=== PATIENT | male | born 1955 | race Caucasian/White ===

== ENCOUNTER → 2017-07-25 | Outpatient (CLI) | payer BC ==
[2017-07-25 07:30] LABS: Blood Urea Nitrogen 15 mg/dL (9-20)
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
== END | disposition home or self-care (01) ==
LOC: RADMRIMAIN 06:36
PROVIDERS: ATTEND Thoracic Surgery (Cardiothoracic Vascular Surgery)
DX: M47.812 Spondylosis without myelopathy or radiculopathy, cervical region (principal)
CPT/HCPCS: 82565; 84520; 72156; 36415; A9581

== ENCOUNTER → 2017-08-21 | Outpatient (CLI) | payer BC ==
--- NOTE | 2017-08-21 08:33 | CTL ---
EXAMINATION TYPE: CT Low Dose Lung DATE OF EXAM ORDERED: 08/21/2017 HISTORY: Tobacco abuse. Lung cancer screening CT DLP: 117.[address] CTDI: 3.1 mGy Automated exposure control for dose reduction was used. SCREENING VISIT: Initial COMPARISON: None TECHNIQUE: Low dose computed tomography scan was performed through the chest at 1 mm thick sections a nd reconstructed images in the coronal plane at [address] DIAGNOSTIC QUALITY: Satisfactory FINDINGS: LUNG NODULES: None. There is a 3 mm pulmonary nodule within the superior segment of the right lower lobe adjacent to pulm onary vasculature on coronal series 9 image 38 and lung window series 4 image 155. Alternatively this could represent an ectatic vessel but is thought to be a true pulmonary nodule on the coronal images . LUNGS: COPD: Severity: Mild centrilobular Fibrosis: Severity: None Lymph nodes: No adenopathy Other findings: There is mild symmetric bilateral partially visualized probable retroareolar gynecoma stia. Minimal bibasilar subsegmental dependent atelectasis is seen on the right. RIGHT PLEURAL SPACE: Effusion: None Calcification: None Thickening: None Pneumothorax: None LEFT PLEURAL SPACE: Effusion: None Calcification: None Thickening: None Pneumothorax: None HEART: Heart Size: Normal Coronary calcification: Moderate Pericardial effusion: None OTHER FINDINGS: Upper abdomen: There are small hiatal hernia. Gallbladder surgically absent. Liver is diffusely hypoa ttenuating approaching criteria for hepatomegaly. Bony thorax: No suspicious lesions. Mild multilevel degenerative changes of the thoracic spine. Supraclavicular region: No adenopathy IMPRESSION: Solitary solid 3 mm right lower lobe pulmonary nodule. This is considered a LUNG-RADS 2-n odule with a very low likelihood of becoming a clinically active cancer due to size. However recommen dation is for continued annual screening with low dose CT in 12 months to ensure stability. There is mild background centrilobular pulmonary emphysema. FOLLOW UP CT CHEST RECOMMENDATION: Continued annual screening with low dose CT in [address] LUNG RAD: Lung-Rad 2 Benign Appearance or Behavior
== END | disposition home or self-care (01) ==
LOC: RADCTMAIN 07:23
PROVIDERS: ATTEND Internal Medicine
DX: Z12.2 Encounter for screening for malignant neoplasm of respiratory organs (principal); R91.1 Solitary pulmonary nodule; J43.9 Emphysema, unspecified; Z87.891 Personal history of nicotine dependence

== ENCOUNTER → 2018-01-10 | Outpatient (CLI) | payer BC ==
--- NOTE | 2018-01-10 09:50 | CT ---
EXAMINATION TYPE: CT sinus wo con DATE OF EXAM: 01/10/2018 COMPARISON: 03/16/2012 HISTORY: 62-year-old male sinus congestion CT DLP: 628.7 mGycm Automated exposure control for dose reduction was used. TECHNIQUE: Noncontrast axial views of the paranasal sinuses were obtained. Coronal reconstructions pe rformed. FINDINGS: PARANASAL SINUSES: Trace mucosal thickening right maxillary sinus. There is a trace air-fluid level present in the right maxillary sinus as well. Additional trace mucosal thickening within the bifrontal sinuses. The ethmo id, left maxillary and sphenoid sinuses are clear and well pneumatized. Reactive deepti- osteogenesis is not seen. There is no destruction of the osseous lehman of the paranasal sinuses. THE NASAL CAVITY: The osteomeatal complexes are patent. The nasal septum shows minimal undulation. The imaged brain and orbits are normal in appearance. The majority of the mastoid air cells and middle ear cavities are excluded from view. Reformatted images confirm above findings. IMPRESSION: Mild chronic right maxillary and bifrontal sinus disease. There is also a trace air-fluid level in th e right maxillary sinus that could represent a superimposed acute sinusitis.
== END | disposition home or self-care (01) ==
LOC: RADCTMAIN 09:10
PROVIDERS: ATTEND Otolaryngology
DX: J32.0 Chronic maxillary sinusitis (principal)
CPT/HCPCS: 70486

== ENCOUNTER → 2018-02-16 | Outpatient (CLI) | payer BC ==
--- NOTE | 2018-02-17 12:52 | XR ---
EXAMINATION TYPE: XR chest 2V DATE OF EXAM: 02/16/2018 COMPARISON: Prior chest x-ray 04/04/2013 HISTORY: Cough and congestion TECHNIQUE: Frontal and lateral views of the chest are obtained. FINDINGS: Prominent lung volumes could be indicative of underlying COPD. There is no evident airspac e disease, pneumothorax, or pleural effusion. Cardiomediastinal silhouette, pulmonary vascularity and jennifer are unchanged. IMPRESSION: No acute cardiopulmonary process.
== END ==
LOC: RADXRMAIN 16:44
PROVIDERS: ATTEND Internal Medicine
DX: R05 Cough (principal)
CPT/HCPCS: 71046

== ENCOUNTER → 2018-08-30 | Outpatient (CLI) | payer MEDICARE, BC ==
--- NOTE | 2018-08-30 08:41 | CTL ---
EXAMINATION TYPE: CT Low Dose Lung DATE OF EXAM ORDERED: 08/30/2018 HISTORY: 63-year-old male Personal history of tobacco use. Lung cancer screening CT DLP: [address] CTDI: 2.22 mGy Automated exposure control for dose reduction was used. SCREENING VISIT: One-year follow-up COMPARISON: 08/21/2017 TECHNIQUE: Low dose computed tomography scan was performed through the chest at 1 mm thick sections a nd reconstructed images in the coronal/sagittal plane. Additional coronal/sagittal MIP reconstruction s performed. CT DIAGNOSTIC QUALITY: Satisfactory FINDINGS: Heart normal size without pericardial effusion. Coronary vessel calcifications are present. Aorta normal caliber with minimal atherosclerotic arch calcifications and conventional arch vessel br anching anatomy. Scattered nonenlarged mediastinal lymph nodes are unchanged. No thoracic lymphadenopathy by CT size c riteria. Trace bilateral gynecomastia. Mild centrilobular emphysema. Multiple moderate bronchial wall thickening. Stable 3 mm right middle l obe pulmonary nodule, axial image 167. No suspicious pulmonary nodules. Visualized upper abdomen shows cholecystectomy clips. Bones: Endplate spondylosis mid to lower thoracic spine. IMPRESSION: 1. Lung RADS 2 - benign; stable solitary 3 mm right midlung pulmonary nodule. 2. COPD with mild emphysema. RECOMMENDATION: 1. Continue annual low-dose lung cancer screening CT. 2. Smoking cessation. FOLLOW UP CT CHEST RECOMMENDATION: [address] LUNG RAD: Lung-Rad 2 Benign Appearance or Behavior
== END | disposition home or self-care (01) ==
LOC: RADCTMAIN 07:41
PROVIDERS: ATTEND Internal Medicine
DX: Z12.2 Encounter for screening for malignant neoplasm of respiratory organs (principal); J43.9 Emphysema, unspecified; R91.1 Solitary pulmonary nodule; F17.210 Nicotine dependence, cigarettes, uncomplicated

== ENCOUNTER → 2018-09-14 | Day surgery (SDC) | payer MEDICARE, BC ==
[2018-09-12 16:29] VITALS: BMI 29.2
[~2018-09-14] MED LIST: LACTATED RINGERS 1,000 ML IV ONE; LACTATED RINGERS 1,000 ML IV SCH; LIDOCAINE 1% 20 ML VIAL (10MG/ML) FOR IV START INTRADERMA ONE; PROPOFOL 10 MG/ML 20 ML VIAL IV ONE
[2018-09-14 09:23] VITALS: TEMP 97.8
--- NOTE | 2018-09-14 10:25 | P.PCN ---
Date of Procedure: 09/14/18 Procedure(s) Performed: Brief history: Patient is a pleasant 63-year-old white male, scheduled for an elective upper endoscopy as well as colonoscopy as a part of evaluation of GERD and prior history of colon polyps. Last colonoscopy was 5 years Procedure performed: Esophagogastroduodenoscopy with biopsy Colonoscopy Preoperative diagnosis: GERD History of colon polyps Anest[place]: [facility] [place] Procedure: After informed consent was obtained from the patient was brought into the endoscopy unit and IV sedation was administered by anesthesia under continuous monitoring. Initially upper endoscopy was done. The Olympus GF 160 video endoscope was inserted inserted into the mouth and esophagus intubated without any difficulty and was gradually advanced into the stomach and duodenum and carefully examined. The bulb and second part of the duodenum appeared normal. The scope was then withdrawn into the stomach adequately insufflated with air and upon careful examination the antrum had mild gastritis and biopsies were done from this area. The body, cardia and fundus appeared normal. The scope was then withdrawn into the esophagus. The GE junction was located at 40 cm to the incisors. It appeared regular with no erythema erosions or ulcerations. Rest of the esophagus appeared normal. Patient tolerated the procedure well. At this time the patient continued to remain sedation. Initial digital rectal examination was normal. Olympus CF 160 video colonoscope was then inserted into the rectum and gradually advanced to the cecum without any difficulty. Careful examination was performed as the scope was gradually being withdrawn. The prep was excellent. The cecum, ascending colon, transverse colon, descending colon, sigmoid colon and rectum appeared normal. Retroflexion was performed in the rectum and no lesions were noted. Patient tolerated the procedure well. Impression: 1. Upper endoscopy revealed mild antral gastritis but no evidence of esophagitis or Salas's esophagus. 2. Colonoscopy was essentially within normal limits with no evidence of colitis or colorectal neoplasia Recommendations: Findings of this examination were discussed with the patient as well as his family. He was advised to follow with the biopsy results. He can have a repeat surveillance colonoscopy in 5 years from now because of the prior history of colon polyps.
[2018-09-14 10:29] VITALS: RESP 17
[2018-09-14 10:35] VITALS: BP 115/61; PULSE 61
== END ==
LOC: ORWHC2ENDO 09:02
PROVIDERS: ATTEND Internal Medicine Gastroenterology
DX: Z12.11 Encounter for screening for malignant neoplasm of colon (principal); K29.50 Unspecified chronic gastritis without bleeding; Z86.010 Personal history of colon polyps; F17.210 Nicotine dependence, cigarettes, uncomplicated; J44.9 Chronic obstructive pulmonary disease, unspecified; Z90.49 Acquired absence of other specified parts of digestive tract; Z87.11 Personal history of peptic ulcer disease; Z79.1 Long term (current) use of non-steroidal anti-inflammatories (NSAID); Z79.899 Other long term (current) drug therapy; Z88.6 Allergy status to analgesic agent; Z88.0 Allergy status to penicillin
CPT/HCPCS: 88305; 43239; J2704; G0105

== ENCOUNTER → 2019-02-26 | Outpatient (CLI) | payer MEDICARE, BC ==
[2019-02-27 14:04] LABS: C-ANCA <1:20 Titer (<1:20)
== END | disposition home or self-care (01) ==
LOC: LABWHC1 09:43
PROVIDERS: ATTEND Psychiatry & Neurology Pain Medicine
DX: L95.9 Vasculitis limited to the skin, unspecified (principal)
CPT/HCPCS: 36415; 85652; 86038; 86140; 86255

== ENCOUNTER → 2019-10-18 | Outpatient (CLI) | payer MEDICARE, BC ==
[2019-10-18 14:47] LABS: African American GFR (CKD) >90 (>60 ml/min/1.73 sqM); Blood Urea Nitrogen 7 mg/dL (9-20); Non-African American GFR(CKD) 89 (>60 ml/min/1.73 sqM)
--- NOTE | 2019-10-18 15:31 | CT ---
EXAMINATION TYPE: CT head without contrast CT angio head DATE OF EXAM: 10/18/2019 COMPARISON: None. HISTORY: 64-year-old male with headache x3 months. M31.6, other giant cell arteritis. TECHNIQUE: Contiguous axial scanning of the brain performed without and with IV Contrast, patient inj ected with 100 mL of Isovue 370. Coronal/sagittal MIP reconstructions performed. 3-D reconstructions generated on a dedicated independent workstation. CT DLP: 1347.6 mGycm Automated exposure control for dose reduction was used. FINDINGS: There is mild cerebral cortical volume loss. Moderate patchy white matter hypodensities in both cereb ral hemispheres. No evidence for acute intracranial hemorrhage, acute ischemic change, mass, mass effect, midline shif t, or extra-axial fluid collection. No hydrocephalus. No effacement of cerebral sulci or basal subara chnoid cisterns. Carvajal-white matter differentiation is maintained. Vertebral arteries are codominant. The vertebral and basilar arteries appear patent as does the remai nder of the posterior circulation. Mild atherosclerotic narrowing within the bilateral carotid siphons. Otherwise, anterior circulation is patent. No aneurysmal change is seen. Some frothy layering fluid left maxillary sinus. Scattered mild mucosal thickening ethmoid air cells. Small amount of fluid in the inferior right mastoid air cells. IMPRESSION: 1. MODERATE PATCHY CHANGES OF CHRONIC SMALL VESSEL ISCHEMIC DISEASE AND MILD CORTICAL ATROPHY. NO ACU TE INTRACRANIAL ABNORMALITY SEEN. 2. MILD ATHEROSCLEROTIC NARROWING THROUGHOUT THE BILATERAL CAROTID SIPHONS. NO LARGE VESSEL INTRACRAN IAL ARTERIAL OCCLUSION. NO ANEURYSMAL CHANGE SEEN. 3. BILATERAL ETHMOID AND LEFT MAXILLARY SINUS DISEASE.
== END | disposition home or self-care (01) ==
LOC: RADCTMAIN 14:10
PROVIDERS: ATTEND Psychiatry & Neurology Neurology
DX: I73.89 Other specified peripheral vascular diseases (principal); G31.89 Other specified degenerative diseases of nervous system; I65.23 Occlusion and stenosis of bilateral carotid arteries; M31.6 Other giant cell arteritis; H53.9 Unspecified visual disturbance; R90.89 Other abnormal findings on diagnostic imaging of central nervous system; I99.8 Other disorder of circulatory system; Z88.0 Allergy status to penicillin; Z88.6 Allergy status to analgesic agent
CPT/HCPCS: 82565; 84520; 70496; 36415; Q9967

== ENCOUNTER → 2019-11-29 | Outpatient (CLI) | payer MEDICARE, BC ==
--- NOTE | 2019-12-01 16:18 | CT ---
EXAMINATION TYPE: CT iac wo con DATE OF EXAM: 11/29/2019 COMPARISON: None. HISTORY: Mastoiditis, hearing loss. Left ear open wound, appears to have growth per physician. CT DLP: 142.7mGycm Automated exposure control for dose reduction was used. FINDINGS: There is a 5 x 2 mm area of soft tissue thickening of the deep portion of the left external auditory canal posteriorly (3:44, 9:17) with mild associated osseous erosion of the adjacent mastoid , and without contacting the tympanic membrane. The right external auditory canal is patent. No tymp anic membrane thickening bilaterally. Mastoid air cells show no evidence of abnormal opacification bi laterally. The middle ear ossicles are symmetric and unremarkable. There is no evidence of suspicio us surrounding soft tissue density to suggest cholesteatoma. The scutum is preserved bilaterally. T he cochlea and the semicircular canals are symmetric and unremarkable. Vestibular aqueduct and inter nal carotid canal appear unremarkable. Temporomandibular joints are maintained bilaterally. IMPRESSION: 1. Left external auditory canal demonstrates deep posterior 5 x 2 mm area of soft tissue thickening, with mild osseous erosion of the adjacent mastoid. Findings may represent malignant otitis externa. 2. No evidence of mastoiditis.
== END | disposition home or self-care (01) ==
LOC: RADCTMAIN 09:03
PROVIDERS: ATTEND Otolaryngology
DX: H61.892 Other specified disorders of left external ear (principal); J32.0 Chronic maxillary sinusitis; H70.90 Unspecified mastoiditis, unspecified ear
CPT/HCPCS: 70480

== ENCOUNTER 2019-12-27 08:35 | Day surgery (SDC) | payer MEDICARE, BC ==
[2019-12-24 13:10] VITALS: BMI 28.8
--- NOTE | 2019-12-27 00:57 | HP ---
HISTORY AND PHYSICAL CHIEF COMPLAINT: Lesion of the left external auditory canal. HISTORY OF PRESENT ILLNESS: This patient is a pleasant 64-year-old male who was recently seen in my office because of drainage from his left ear. At the time that we originally saw this patient, clinical examination of the left ear revealed that he had quite a bit of purulent drainage in an area of ulceration on the floor of the ear near the junction of the cartilage in the bony portion of the canal. Initially the left ear was somewhat painful. The patient was placed on antibiotic ear drops, Floxin, for approximately 2 weeks. Upon returning, the drainage had cleared, but there still appeared to be an ulceration and possibly some granulation tissue located in the midportion of the ear. A CT scan of the internal auditory canals revealed a small area of soft tissue thickening in the left external auditory canal posteriorly. There also appeared to be mild erosion of the adjacent mastoid. There was a suggestion of possible malignant otitis external. However, there was no evidence of mastoiditis and after 2 weeks of treatment with antibiotic ear drops, the patient stated that the ear was no longer painful and there was no drainage. It was recommended that this area be biopsied under general anesthesia. PAST MEDICAL HISTORY: Past medical history reveals that the patient has allergies to PENICILLIN, ASPIRIN, and IBUPROFEN. His current medications include Mobic, Prevacid, Valium, and prednisone. In addition to this, he is also on Plavix. REVIEW OF SYSTEMS: Cardiovascular is negative. Gastrointestinal system is negative. Metabolic endocrine system is negative. Musculoskeletal is positive for osteoarthritis. The patient smokes approximately 1 pack of cigarettes per day. PREVIOUS SURGERIES: Previous surgeries include colonoscopy, arthroscopy of the knee, biopsy of the left temporal artery. PHYSICAL EXAMINATION: This patient is a very pleasant 64-year-old male who is alert and cooperative and well oriented to time and place. HEENT EXAMINATION: Patient is normocephalic. Examination the right ear is unremarkable. Examination of left ear reveals the patient has an area in the midportion of the canal where there appears to be a small ulceration with some granulation tissue on the floor of the left external auditory canal. This appears to be near the junction of the cartilage and bony portion of the canal. The area is nontender to deep palpation. It is also non-friable. The left tympanic membrane and middle ear space is free of any fluid or infection. Pupils are equal, round, react to light and accommodation. Extraocular movements are within normal limits. Intranasal examination reveals moderate septal deviation with compensatory hypertrophy of the inferior turbinates and a moderate amount of mucus on the mucous membranes and draining down the posterior pharynx. Cranial nerves 2 through 12 and the remainder of the head and neck exam including examination of the oropharynx are all within normal limits. CHEST/CARDIOVASCULAR: Both lung anguiano are clear to percussion and auscultation. The patient is in regular sinus rhythm. S1 and S2 are present without evidence of any murmurs, S3s or S4s. Peripheral pulses are bilaterally symmetrical and within normal limits. ABDOMEN: There is no evidence of masses, megaly, or tenderness. The abdomen is soft. Skin is unremarkable. Musculoskeletal and neurological are within normal limits. RECTAL EXAMINATION: The rectal exam is deferred at this time because the patient has this done on a regular basis at his family physician's office. The remainder of physical exam is unremarkable. IMPRESSION: Lesion of the left external auditory canal. PLAN: The patient is scheduled to undergo biopsy of lesion of the left external auditory canal under general anesthesia in the a.m. ATTENTION RNS IN THE PRE-SURGICAL AREA: I have not ordered any pre-surgical prophylactic antibiotics for this patient. If the pharmacy department sends any pre- surgical prophylactic antibiotics to the pre-surgical area for this patient, that order should be cancelled and the medication should be returned to the pharmacy department. Please make sure that the patient's account is credited appropriately. I have ordered for the patient to receive 1000 mg of Ofirmev IV once an intravenous line has been established. I have discussed the risks, benefits and alternative therapies for the above-mentioned procedure and for both sedation/analgesia as well as necessary blood product administration, if indicated, as they pertain to this patient. The patient has indicated his or her understanding and acceptance of the risks and procedures discussed. MMODL / IJN: [id number] /
[~2019-12-27 08:35] MED LIST changes: +HYDROmorphone 0.5 MG/0.5 ML SYRINGE IVP PRN; -LACTATED RINGERS 1,000 ML IV ONE; +LIDOCAINE 1% (10MG/ML) FOR IV START INTRADERMA PRN; -LIDOCAINE 1% 20 ML VIAL (10MG/ML) FOR IV START INTRADERMA ONE; +ONDANSETRON 4 MG/2 ML VIAL IVP ONE; -PROPOFOL 10 MG/ML 20 ML VIAL IV ONE; +Pre Op ABX Message 1 EACH MISC MISCELLANE ONE
[2019-12-27] MEDS ORDERED: ACETAMINOPHEN IV (For NPO) 1,000 MG in EMPTY BAG 1 BAG IVPB ONE (09:45)
[2019-12-27] MEDS ORDERED: fentaNYL (PF) 50 MCG/ML 2 ML AMP ONE (10:01)
[2019-12-27] MEDS ORDERED: LIDOCAINE 1% INJ 10MG/ML (20 ML MDV) ONE (10:01)
[2019-12-27] MEDS ORDERED: MIDAZOLAM 2 MG/2 ML VIAL ONE (10:01)
[2019-12-27] MEDS ORDERED: PROPOFOL 10 MG/ML 20 ML VIAL IV ONE (10:01)
[2019-12-27] MEDS ORDERED: OFLOXACIN 0.3% OPHTH DROPS 5 ML BOTTLE LEFT EAR ONE (10:38)
[2019-12-27 10:59] VITALS: TEMP 97.3
[2019-12-27 11:33] VITALS: RESP 16
[2019-12-27 12:28] VITALS: BP 135/88; PULSE 56
--- NOTE | 2019-12-30 09:44 | OP ---
OPERATIVE REPORT DATE OF SURGERY: 12/27/2019. PREOPERATIVE DIAGNOSIS: Lesion of the left external auditory canal, final pathology pending. POSTOPERATIVE DIAGNOSIS: Lesion of the left external auditory canal, final pathology pending. ANESTHESIA: General. OPERATIVE PROCEDURE: Biopsy of lesion of the left external auditory canal. OPERATING SURGEON: Dr. Rodriguez. COMPLICATIONS: None. ESTIMATED BLOOD LOSS: Less than 2 mL. OPERATIVE PROCEDURE: The patient was placed on the operating table in supine position after uneventful induction and endotracheal intubation, satisfactory general anesthesia was obtained. The patient's left ear was prepped and draped in the usual and customary fashion. Following this, using the Zeiss operating microscope and a #3 aural speculum, the left external auditory canal was cleansed of all wax and debris. Inspection under magnification revealed that there appeared to be an area at the junction of the caudal agonist and bony canal where the skin or tissue had either heaped upward or appeared to be forming a pseudomembrane. The patient's tympanic membrane was totally intact and normal. Therefore, using a pair of up-biting otology O2 all otology ear forceps, several biopsies were initially obtained and these were sent for cultures. Several additional biopsies of this tissue also obtained and these were placed in formalin and sent to Pathology for permanent sectioning. Pressure was applied to the area which appeared to stop the bleeding and also the ear was dusted with Aresta hemostatic powder. No packing was placed in the ear. At this point, the procedure was terminated. There were no intraoperative complications. Estimated blood loss less than 2 mL. The patient was returned to the recovery room in satisfactory condition. Final pathology is pending. MMODL / IJN: [id number] /
== END 2019-12-27 12:35 | disposition home or self-care (01) ==
LOC: OR 08:35
PROVIDERS: ATTEND Otolaryngology
DX: L57.0 Actinic keratosis (principal); R23.8 Other skin changes; M19.90 Unspecified osteoarthritis, unspecified site; F17.210 Nicotine dependence, cigarettes, uncomplicated; E78.5 Hyperlipidemia, unspecified; J45.909 Unspecified asthma, uncomplicated; K21.9 Gastro-esophageal reflux disease without esophagitis; Z88.0 Allergy status to penicillin; Z88.1 Allergy status to other antibiotic agents; Z88.6 Allergy status to analgesic agent; Z88.8 Allergy status to other drugs, medicaments and biological substances; Z79.1 Long term (current) use of non-steroidal anti-inflammatories (NSAID); Z79.899 Other long term (current) drug therapy; Z79.52 Long term (current) use of systemic steroids; Z79.02 Long term (current) use of antithrombotics/antiplatelets; Z98.890 Other specified postprocedural states; Z97.2 Presence of dental prosthetic device (complete) (partial); Z87.11 Personal history of peptic ulcer disease; Z86.79 Personal history of other diseases of the circulatory system; Z86.69 Personal history of other diseases of the nervous system and sense organs; W89.9XXA Exposure to unspecified man-made visible and ultraviolet light, initial encounter
CPT/HCPCS: 88304; 82365; 69100; J2250; J2405; J2001; J3010; J0131; J2704; 87070; 87075; 87205

== ENCOUNTER → 2020-01-23 | Outpatient (CLI) | payer MEDICARE, BC ==
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
== END | disposition home or self-care (01) ==
LOC: RADCTMAIN 07:57
PROVIDERS: ATTEND Family Medicine
DX: Z12.2 Encounter for screening for malignant neoplasm of respiratory organs (principal); F17.210 Nicotine dependence, cigarettes, uncomplicated

== ENCOUNTER 2020-02-19 09:51 | Day surgery (SDC) | payer MEDICARE, BC ==
[2020-02-17 15:28] VITALS: BMI 28.6
[~2020-02-19 09:51] MED LIST changes: -HYDROmorphone 0.5 MG/0.5 ML SYRINGE IVP PRN; -LIDOCAINE 1% (10MG/ML) FOR IV START INTRADERMA PRN; -ONDANSETRON 4 MG/2 ML VIAL IVP ONE; -Pre Op ABX Message 1 EACH MISC MISCELLANE ONE
[2020-02-19 10:08] VITALS: TEMP 97.7
[2020-02-19] MEDS ORDERED: LACTATED RINGERS 1,000 ML IV ONE (10:08)
[2020-02-19] MEDS ORDERED: LIDOCAINE 1% (10MG/ML) FOR IV START INTRADERMA ONE (10:18)
[2020-02-19] MEDS ORDERED: LIDOCAINE 1% INJ 10MG/ML (20 ML MDV) ONE (11:20)
[2020-02-19] MEDS ORDERED: PROPOFOL 10 MG/ML 20 ML VIAL IV ONE (11:20)
--- NOTE | 2020-02-19 11:40 | P.PCN ---
Date of Procedure: 02/19/20 Procedure(s) Performed: Brief history: Patient is a pleasant 64-year-old white male scheduled for an elective upper endoscopy as well as colonoscopy as a part of evaluation of GERD and screening for colorectal neoplasia Procedure performed: Esophagogastroduodenoscopy Colonoscopy with snare polypectomy Preoperative diagnosis: GERD Screening for colon cancer Anesthesia: MAC Procedure: After informed consent was obtained from the patient was brought into the endoscopy unit and IV sedation was administered by anesthesia under continuous monitoring. Initially upper endoscopy was done. The Olympus GF 160 video endoscope was inserted inserted into the mouth and esophagus intubated without any difficulty and was gradually advanced into the stomach and duodenum and carefully examined. The bulb and second part of the duodenum appeared normal. The scope was then withdrawn into the stomach adequately insufflated with air and upon careful examination the antrum and body, cardia and fundus appeared normal. The scope was then withdrawn into the esophagus. The GE junction was located at 40 cm to the incisors. It appeared regular with no erythema erosions or ulcerations. Rest of the esophagus appeared normal. Patient tolerated the procedure well. At this time the patient continued to remain sedation. Initial digital rectal examination was normal. Olympus CF 160 video colonoscope was then inserted into the rectum and gradually advanced to the cecum without any difficulty. Careful examination was performed as the scope was gradually being withdrawn. The prep was excellent. The cecum, where normal. In the ascending colon there was a 5 mm polyp removed by snare polypectomy. In the transverse colon there was another 5 mm sessile polyp removed by snare polypectomy. Rest of the ascending colon, transverse colon, descending colon, sigmoid colon and rectum appeared normal. Retroflexion was performed in the rectum and no lesions were noted. Patient tolerated the procedure well. Impression: 1. Upper Endoscopy revealed mild antral gastritis 2. Colonoscopy revealed 5 mm ascending colon polyp and 5 mm transverse colon polyp status post polypectomy Recommendations: Findings of this examination were discussed with the patient as well as his family. He was advised to the biopsy results. If the biopsy shows an adenoma he can have a repeat colonoscopy in 5 years.
[2020-02-19 12:01] VITALS: BP 136/76; PULSE 60; RESP 16
== END 2020-02-19 12:20 | disposition home or self-care (01) ==
LOC: ORWHC2ENDO 09:51
PROVIDERS: ATTEND Internal Medicine Gastroenterology
DX: Z12.11 Encounter for screening for malignant neoplasm of colon (principal); D12.2 Benign neoplasm of ascending colon; D12.3 Benign neoplasm of transverse colon; K21.9 Gastro-esophageal reflux disease without esophagitis; E78.5 Hyperlipidemia, unspecified; J45.909 Unspecified asthma, uncomplicated; Z86.010 Personal history of colon polyps; F32.9 Major depressive disorder, single episode, unspecified; F17.210 Nicotine dependence, cigarettes, uncomplicated; M19.90 Unspecified osteoarthritis, unspecified site; K25.9 Gastric ulcer, unspecified as acute or chronic, without hemorrhage or perforation; Z90.49 Acquired absence of other specified parts of digestive tract; Z98.890 Other specified postprocedural states; Z97.2 Presence of dental prosthetic device (complete) (partial); Z79.02 Long term (current) use of antithrombotics/antiplatelets; Z79.891 Long term (current) use of opiate analgesic; Z79.899 Other long term (current) drug therapy; Z88.6 Allergy status to analgesic agent; Z88.1 Allergy status to other antibiotic agents; Z88.0 Allergy status to penicillin; Z88.8 Allergy status to other drugs, medicaments and biological substances
CPT/HCPCS: 88305; 45385; 43235; J2001; J2704

== ENCOUNTER → 2020-10-06 | Outpatient (CLI) | payer MEDICARE, BC ==
--- NOTE | 2020-10-06 16:06 | XR ---
EXAMINATION TYPE: XR chest 2V DATE OF EXAM: 10/06/2020 COMPARISON: January 16, 2018 HISTORY: Shortness of breath TECHNIQUE: Frontal and lateral views of the chest are obtained. FINDINGS: Scattered senescent parenchymal changes noted. Hyperinflation compatible with COPD. No evidence for infiltrate. No evidence for atelectasis. Heart size is stable. Mediastinal structures are stable and grossly unremarkable. No evidence for hilar prominence. Degenerative changes dorsal spine. IMPRESSION: 1. No evidence for acute pulmonary disease.
== END | disposition home or self-care (01) ==
LOC: RADXRMAIN 15:35
PROVIDERS: ATTEND Family Medicine
DX: R06.02 Shortness of breath (principal)
CPT/HCPCS: 71046

== ENCOUNTER → 2020-11-02 | Outpatient (CLI) | payer MEDICARE, BC ==
--- NOTE | 2020-11-02 11:43 | ECHOF ---
Referral Reason:R94.31 abnormal EKG MEASUREMENTS -------- HEIGHT: 170.2 cm WEIGHT: 94.3 kg BP: IVSd: 1.0 cm (0.6 - 1.1) LVIDd: 3.2 cm (3.9 - 5.3) LVPWd: 1.1 cm (0.6 - 1.1) IVSs: 1.7 cm LVIDs: 2.3 cm LVPWs: 1.4 cm LAESV Index (A-L): 24.33 ml/m Ao Diam: 3.2 cm (2.0 - 3.7) AV Cusp: 2.2 cm (1.5 - 2.6) LA Diam: 2.8 cm (2.7 - 3.8) MV EXCURSION: 13.883 mm (> 18.000) MV EF SLOPE: 128 mm/s (70 - 150) EPSS: 0.5 cm MV E Lester: 0.88 m/s MV DecT: 189 ms MV A Lester: 0.67 m/s MV E/A Ratio: 1.32 RAP: 5.00 mmHg RVSP: 17.01 mmHg FINDINGS -------- This was a technically good study. The left ventricular size is normal. Left ventricular wall thickness is normal. Overall left vent ricular systolic function is normal with, an EF between 55 - 60 %. The diastolic filling pattern is normal for the age of the patient 11.29. The right ventricle is normal in size. The left atrial size is normal. Normal LA size by volume 22+/-6 ml/m2. The right atrial size is normal. The aortic valve is trileaflet and appears structurally normal. The mitral valve is normal. There is trace mitral regurgitation. The tricuspid valve appears structurally normal. Trace tricuspid regurgitation present. Right jacob tricular systolic pressure is normal at < 35 mmHg. There is no pulmonic regurgitation present. The aortic root size is normal. Normal inferior vena cava with normal inspiratory collapse consistent with estimated right atrial pre ssure of 5 mmHg. There is no pericardial effusion. CONCLUSIONS -------- 1. The left ventricular size is normal. 2. Left ventricular wall thickness is normal. 3. Overall left ventricular systolic function is normal with, an EF between 55 - 60 %. 4. The diastolic filling pattern is normal for the age of the patient 11.29 5. There is trace mitral regurgitation. 6. Trace tricuspid regurgitation present. 7. There is no pericardial effusion. PHARMACY GRAD INTERN: Neida Houston RDCS
--- NOTE | 2020-11-02 13:56 | ECHOS ---
STRESS ECHOCARDIOGRAM INDICATION: Abnormal EKG. MEDICATIONS: BASELINE HEART RATE: 65 BASELINE BLOOD PRESSURE: 127/74 MAXIMUM HEART RATE: 137 MAXIMUM BLOOD PRESSURE: 203/80 85% MPHR: 130 100% MPHR: 153 METS: 5.0 MAXIMUM STAGE REACHED: 2 TOTAL EXERCISE TIME: 4 min 10 sec. RESULTS: Baseline EKG shows sinus rhythm, normal axis, some poor R-wave progression. Patient exercised on Eduardo protocol for a total of 4 minutes, achieving 5 METS, 89% of predicted maximal heart rate without chest pain or diagnostic ST-segment depression. Baseline echo shows normal left ventricular size, wall motion and systolic function. Postexercise there is normal hyperdynamic response of all segments of myocardium noted. CONCLUSIONS: 1. Limited exercise tolerance. 2. Negative stress test by EKG criteria. 3. Negative stress echo. MMODL / IJN: [id number] /
== END | disposition home or self-care (01) ==
LOC: RADNMMAIN 10:01
PROVIDERS: ATTEND Family Medicine
DX: I08.1 Rheumatic disorders of both mitral and tricuspid valves (principal); R94.31 Abnormal electrocardiogram [ECG] [EKG]
CPT/HCPCS: 93306; 93351

== ENCOUNTER → 2020-11-26 | Outpatient (CLI) | payer MEDICARE, BC ==
--- NOTE | 2020-11-26 20:34 | CONS ---
CONSULTATION DATE OF SERVICE: 11/26/2020 65 -year-old gentleman has been evaluated in the [facility] for feeling tiredness and sleepiness all the time. Possible obstructive sleep apnea. HISTORY OF PRESENT ILLNESS/SLEEP WAKE EVALUATION: SLEEP SCHEDULE: The patient's usual sleep schedule from 10 p.m. to 7 a.m. on weekdays and 10:30 p.m. to 7:30 a.m., 8 a.m. on weekends. FALLING ASLEEP: No problems with falling asleep although he has t.v. Set in bedroom. DURING SLEEP: He usually sleeps on the side position. According to his , he occasionally snores. Has episodes of heartburn and panic attacks. DURING THE DAY/SLEEP WAKE EVALUATION: During the day, he has difficulties to pay attention. He has problem with memory, concentration, irritability, depression, anxiety and sexual dysfunction. He drinks two coffees and three to four Pepsi during the day. With this regimen, his Byron sleep scale is 3 but sometimes still may take some occasional naps. No history of hypnogogical hallucinations, sleep paralysis or cataplexy. PAST MEDICAL HISTORY: Positive for headaches, hyperlipidemia, anxiety, allergies, hayfever. Presently on evaluation of his lungs, the patient has positive history of smoking for more than 75 pack years. PAST SURGICAL HISTORY: ACL and meniscus surgery in 2009. MEDICATIONS: 10 mg, three times a day, 5 mg once a day, Ramiprazole 30 mg twice a day, clopidogrel 75 mg once a day, presently on Prednisone with decreasing dose, Zyrtec twice a day, Vitamin D and Vitamin B complex supplement. REVIEW OF SYMPTOMS: Always tiredness during the day, concentration, irritability, depression, anxiety, sexual dysfunction. SOCIAL HISTORY: Positive history of smoking for 52 years, 1 1/2 packs a day. Alcohol none at the present time. PHYSICAL EXAMINATION: gentleman without distress. Blood pressure 142/71. HR 74, RR 15, height 5 feet 7 three quarter inches, weight 116 pounds, body mass index 31.6, neck 15 1/2 inches in circumference. Temperature 98.5 degrees. Oxygen saturation on room air 98%. Oropharynx Mallampati 2-3. Small oropharyngeal air space. NECK: Supple, no JVD. Thyroid is not palpable. LUNGS: Clear to percussion and to auscultation. Good air exchange. No wheezing or rhonchi. HEART: S1, S2 regular. No murmurs, gallops, or rubs. ABDOMEN: Soft and nontender. Bowel sounds are present. No organomegaly appreciated. EXTREMITIES: No clubbing or cyanosis. IUSS ANALYST: Awake, alert, and oriented X3. Cranial nerves 2 to 7 intact. There is no fasciculation or atrophy. noted. No focal deficits observed. IMPRESSION: 1. Episodes of snoring, small oropharyngeal air space, tiredness and sleepiness during the day, possible obstructive sleep apnea/hypopnea syndrome. 2. Mild obesity, BMI 30.0. 3. Anxiety. 4. Episodes of headaches. 5. Hyperlipidemia. 6. Allergy, history of hayfever. 7. Status post ACL and meniscus surgery in 2009. 8. History of smoking more than 75 pack years, presently evaluation of the lung planning for CT scan of the lungs. PLAN: 1. Polysomnography for evaluation of patient's breathing during sleep. 2. CPAP/BiPAP titration if sleep study confirms obstructive sleep apnea-hypopnea syndrome. 3. Preferable position during sleep on the side. 4. No driving if patient feels any sleepiness. 5. I will see patient for follow up visit to explain results of testing and following plan. 6. Smoking cessation. Thank you very much for referring this patient for consultation. Sincerely, Brad Bailey MD, PhD, FAASM Diplomat of [employer] Sleep Medicine [employer] of [employer] [facility] [place] [facility] [place] MMODL / IJN: [id number] /
== END ==
LOC: SLEEP 14:04
PROVIDERS: ATTEND Internal Medicine
DX: G47.10 Hypersomnia, unspecified (principal); F41.9 Anxiety disorder, unspecified; T78.40XA Allergy, unspecified, initial encounter; E66.9 Obesity, unspecified; E78.5 Hyperlipidemia, unspecified; Z87.891 Personal history of nicotine dependence; Z98.890 Other specified postprocedural states; Z91.048 Other nonmedicinal substance allergy status; Z68.30 Body mass index [BMI] 30.0-30.9, adult; Z88.6 Allergy status to analgesic agent; Z88.0 Allergy status to penicillin; Z88.1 Allergy status to other antibiotic agents; Z88.8 Allergy status to other drugs, medicaments and biological substances
CPT/HCPCS: 99211

== ENCOUNTER 2020-12-09 12:09 | Day surgery (SDC) | payer MEDICARE, BC ==
[2020-12-08 09:46] VITALS: BMI 28.8
[~2020-12-09 12:09] MED LIST changes: +ALBUTEROL NEB (CONC) 2.5 MG/0.5 ML INHALATION ONE; +LIDOCAINE 2% (PF) 20 MG/ML 5 ML VIAL INHALATION ONE; +LIDOCAINE VISCOUS 300 MG/15 ML CUP MUCOUS MEM ONE
[2020-12-09 12:42] VITALS: TEMP 97.6
[2020-12-09] MEDS ORDERED: LIDOCAINE 1% INJ 10MG/ML (20 ML MDV) ONE (13:15)
[2020-12-09] MEDS ORDERED: MIDAZOLAM 2 MG/2 ML VIAL ONE (13:15)
[2020-12-09] MEDS ORDERED: GLYCOPYRROLATE 0.2 MG/ML 2 ML VIAL ONE (13:15)
[2020-12-09] MEDS ORDERED: PROPOFOL 10 MG/ML 20 ML VIAL IV ONE (13:15)
[2020-12-09 13:56] VITALS: RESP 16
--- NOTE | 2020-12-09 14:03 | P.PCN ---
Date of Procedure: 12/09/20 Preoperative Diagnosis: Postoperative Diagnosis: Chronic cough Procedure(s) Performed: 1 normal airway inspection 2 Loose respiratory secretions, bronchioloalveolar lavage of the left lower lobe anterior segment was completed. Anesthesia: MAC Surgeon: Michael Breaux Estimated Blood Loss (ml): 0 Pathology: other Disposition: same day Operative Findings: Indication. Is a 65-year-old male patient with chronic cough. The patient is a chronic smoker. This procedure was done under conscious sedation with anesthetic agents being administered by anesthesia the bedside. After achieving adequate sedation, the flexible bronchoscope was inserted through left nostril was advanced into the upper airway. Examination of the upper airway structures including headaches, larynx, epiglottis, vallecula, arytenoids and the vocal cords. All of these upper airway structures were within normal limits. No significant abnormalities was noted. Vocal cord function mobility was also within normal. A total of 2 mL of 1% lidocaine was instilled on the vocal cords and following that the flexible bronchoscope was advanced into the upper trachea. Examination of the tracheal bronchial tree was done. The visualized airways into the trachea, bilateral mainstem bronchi, right upper lobe bronchus, rhonchus intermedius, right middle lobe bronchus, right lower lobe bronchus, left upper lobe bronchus and left lower lobe bronchus. I also inspected the 10 different segments on the right lung and a different segments in the left lung. I encountered some looseness for secretions mainly in the left lung and this was occupying essentially the left lower lobe bronchus along with various segments and the li ngular segment. Therapeutic and was suctioning with him. Rest or secretions were suctioned out without any major difficulties. Airway inspection revealed no endobronchial tumors, no mucosal abnormalities, no foreign bodies, no polyps, no lesions, no pus. Following that, the bronchoscope was moved to the anterior segment of the left lower lobe. The bronchioloalveolar lavage of the anteromedial segment was done. A total of 80 mL of fluid was infused in a total of 20 mL was suctioned back without any major difficulties. The aspirate was nonbloody. Patient tolerated the procedure well. No oxygen desaturations. No significant coughing or respiratory distress during the procedure. Bronchoscope was removed and the patient was transferred recovery in stable condition. Postop diagnosis 1 chronic bronchitis with secondary cough and mucus production 2 smoke-induced cough 3 Normal airway inspection 4 bronchial alveolar lavage of the left lower lobe was done. Pending cultures.
[2020-12-09 14:10] VITALS: BP 122/70; PULSE 60
[2020-12-09 19:31] LABS: Appearance,BF Hazy; Color,BF Colorless; Nucleated Cells, Body Fluid 246 /uL; RBC, Body Fluid 99 /uL
[2020-12-09 19:34] LABS: Mononuclear WBC,Body Fluid 37 %; Polynuclear WBC,Body Fluid 63 %; Total Cells Counted,Body Fluid 100
== END 2020-12-09 14:49 | disposition home or self-care (01) ==
LOC: ORWHC2ENDO 12:09
PROVIDERS: ATTEND Internal Medicine Critical Care Medicine
DX: J42 Unspecified chronic bronchitis (principal); E78.5 Hyperlipidemia, unspecified; F32.9 Major depressive disorder, single episode, unspecified; K58.9 Irritable bowel syndrome, unspecified; F41.1 Generalized anxiety disorder; K21.9 Gastro-esophageal reflux disease without esophagitis; F17.210 Nicotine dependence, cigarettes, uncomplicated; Z79.02 Long term (current) use of antithrombotics/antiplatelets; Z79.899 Other long term (current) drug therapy; Z80.1 Family history of malignant neoplasm of trachea, bronchus and lung; Z90.49 Acquired absence of other specified parts of digestive tract
CPT/HCPCS: 87798 ×3; 87496; 87498; 87529; 88108; 88305; 89050; 87252; 87502; 87634; 87070; 87205; 87116; 87102; 87206; 31624; J2250; J2001; J2704

== ENCOUNTER → 2021-02-23 | Outpatient (CLI) | payer MEDICARE, BC ==
--- NOTE | 2021-02-23 09:12 | CTL ---
EXAMINATION TYPE: CT Low Dose Lung DATE OF EXAM ORDERED: 02/23/2021 HISTORY: 65-year-old male Z87.891. tobacco use, nicotine dependance. Lung cancer screening CT DLP: 79.[address] CTDI: 2.2 mGy Automated exposure control for dose reduction was used. SCREENING VISIT: Annual follow-up COMPARISON: 01/23/2020 TECHNIQUE: Low dose computed tomography scan was performed through the chest with coronal and sagitta l reconstructions. CT DIAGNOSTIC QUALITY: Satisfactory FINDINGS: Heart normal size without pericardial effusion. LAD and circumflex coronary artery calcifications are present. Mild atherosclerotic arch calcifications with conventional arch vessel branching anatomy. Scattered mediastinal lymph nodes are redemonstrated measuring up to 6 mm. No thoracic lymphadenopath y by CT size criteria. Mild bilateral gynecomastia is redemonstrated. Mild to moderate central bronchial wall thickening. Mild emphysematous change. Some scattered mild floyd bpleural interstitial thickening and reticular changes. Mild dependent atelectasis. Stable calcified granuloma lateral right lower lobe, axial image 174. Hazy densities in the lower renita gs probably reflect generalized areas of atelectasis. No consolidation or pleural effusion. Visualized upper abdomen shows no gross anomaly. Bones: Prominent anterior endplate spondylosis T11-T12. Mild multilevel degenerative disc disease. IMPRESSION: 1. LungRADS 2, benign. No new or suspicious pulmonary nodules. 2. COPD with mild emphysema. Scattered chronic interstitial changes. Bronchial wall thickening could reflect a prominent component of chronic bronchitis or superimposed acute bronchitis. Recommend smoki ng cessation. 3. LAD and circumflex coronary artery calcifications. CT LUNG RAD AND CT CHEST RECOMMENDATION: Lung-Rad 2 Benign Appearance or Behavior: Continue annual sc reening with LDCT in 12 months.
== END | disposition home or self-care (01) ==
LOC: RADCTMAIN 07:33
PROVIDERS: ATTEND Family Medicine
DX: Z12.2 Encounter for screening for malignant neoplasm of respiratory organs (principal); Z87.891 Personal history of nicotine dependence; J43.9 Emphysema, unspecified; I25.10 Atherosclerotic heart disease of native coronary artery without angina pectoris
CPT/HCPCS: 71271

== ENCOUNTER 2021-05-14 08:10 | Day surgery (SDC) | payer MEDICARE, BC ==
[2021-05-11 11:47] VITALS: BMI 30.5
[~2021-05-14 08:10] MED LIST changes: -ALBUTEROL NEB (CONC) 2.5 MG/0.5 ML INHALATION ONE; +ALPRAZolam 0.25 MG TAB PO PRN; +ALPRAZolam 0.5 MG TAB PO PRN; +ASPIRIN 325 MG TAB PO STA; +ATORVASTATIN 80 MG TAB PO STA; +HEPARIN SODIUM,PORCINE 10,000 UNIT in SODIUM CHLORIDE 0.9% 1,000 ML IRRIGATION PRN; +HEPARIN SODIUM,PORCINE 2,500 UNIT in SODIUM CHLORIDE 0.9% 250 ML IRRIGATION PRN; -LACTATED RINGERS 1,000 ML IV SCH; -LIDOCAINE 2% (PF) 20 MG/ML 5 ML VIAL INHALATION ONE; -LIDOCAINE VISCOUS 300 MG/15 ML CUP MUCOUS MEM ONE; +NITROGLYCERIN SL TABS 0.4 MG TAB SUBLINGUAL PRN; +SODIUM CHLORIDE 0.9% 1,000 ML in EMPTY BAG 1 BAG IV SCH
[2021-05-14 08:38] VITALS: TEMP 98.1
[2021-05-14] MEDS ORDERED: LIDOCAINE 1% INJ 10MG/ML (20 ML MDV) ONE (08:50)
[2021-05-14] MEDS ORDERED: VERAPAMIL 2.5 MG/ML 2 ML AMP ONE (08:51)
[2021-05-14] MEDS ORDERED: HEPARIN SODIUM 1,000 UN/ML (10ML VL) ONE (08:58)
[2021-05-14] MEDS ORDERED: MIDAZOLAM 2 MG/2 ML VIAL IV ONE (09:15)
[2021-05-14] MEDS ORDERED: LIDOCAINE 1% INJ 10MG/ML (20 ML MDV) SQ ONE (09:17)
[2021-05-14] MEDS ORDERED: VERAPAMIL SYRINGE (5 MG/10 ML) INTRAARTER ONE (09:19)
[2021-05-14] MEDS ORDERED: HEPARIN SODIUM 1,000 UN/ML (10ML VL) IV ONE (09:19)
[2021-05-14] MEDS ORDERED: IOPAMIDOL-370 125ML BTL INJ ONE (09:26)
[2021-05-14] MEDS ORDERED: RX INFO: IV CONTRAST WAS GIVEN 1 EACH MISC MISCELLANE PRN (09:32)
--- NOTE | 2021-05-14 09:37 | P.PCN ---
Date of Procedure: 05/14/21 Operative Findings: CARDIAC CATHETERIZATION PERFORMING PHYSICIAN: Ronen Callahan MD, RPVI PROCEDURE PERFORMED: 1. Selective right and left coronary angiogram 2. Left heart catheterization INDICATION: This is a very pleasant 65-year-old gentleman with hypertension and dyslipidemia who was experiencing symptoms of shortness of underwent myocardial perfusion imaging stenosis and ischemia he is also known to have coronary artery disease based on computed tomography scan of the chest. In light of that heart catheterization was advised COMPLICATION: None APPROACH: Right radial artery LEVEL OF SEDATION: Moderate with a sedation length of 14 minutes PROCEDURE DESCRIPTION: After obtaining an informed consent, the patient was brought to cardiac laborer driver. Local anesthesia was performed using lidocaine subcutaneously. The right radial artery was cannulated using Seldinger technique, the guidewire passed easily, following that we advanced a 5-Burkinan sheath dilator assembly, the wire and dilator were removed and sheath was flushed. Following that, 2 mg of verapamil along with 5000 unit heparin were given. Selective right and left coronary angiogram using a 6-Burkinan JR4 and JL 3.5 catheters. Following that we did left heart catheterization using 6-Burkinan pigtail catheter. The procedure was completed there was no complication. SELECTIVE CORONARY ANGIOGRAM: The right coronary artery: Is a large caliber vessel and nondominant vessel. The RCA is calcified was mild disease only distally bifurcates into PDA and PLV branches and both appeared to be angiographically Left main: Is angiographically normal. Bifurcates into all CX and LAD. The left circumflex: Is a large caliber vessel and nondominant. The LCx has mild disease only. Gives rises into a high takeoff point branch which were present illness intermedius and that appeared to be angiographically normal. The left anterior descending artery: It is a large caliber vessel. The LAD is calcified was mild disease only. Gives rises into a large diagonal branch which bifurcated into 2 subbranches and both appeared to be angiographically normal HEMODYNAMICS: The LVEDP was 10 mmHg without significant gradient across aortic valve CONCLUSION: 1. Calcified right and left coronary system 2. Mild nonobstructive coronary artery disease 3. Normal left-sided filling pressure POSTPROCEDURE MANAGEMENT: Medical treatment and follow-up with the patient
[2021-05-14] MEDS ORDERED: SODIUM CHLORIDE 0.9% 1,000 ML IV SCH (09:45)
[2021-05-14 19:06] VITALS: RESP 16
[2021-05-14 19:07] VITALS: PULSE 48
[2021-05-14 19:09] VITALS: BP 130/66
== END 2021-05-14 14:05 | disposition home or self-care (01) ==
LOC: CATHCVL 08:10
PROVIDERS: ATTEND Internal Medicine Interventional Cardiology
DX: R06.02 Shortness of breath (principal); I25.110 Atherosclerotic heart disease of native coronary artery with unstable angina pectoris; I25.84 Coronary atherosclerosis due to calcified coronary lesion; I10 Essential (primary) hypertension; E78.00 Pure hypercholesterolemia, unspecified; R94.39 Abnormal result of other cardiovascular function study; Z20.822 Contact with and (suspected) exposure to COVID-19; J44.9 Chronic obstructive pulmonary disease, unspecified; E78.5 Hyperlipidemia, unspecified; Z72.0 Tobacco use; Z82.49 Family history of ischemic heart disease and other diseases of the circulatory system; Z79.02 Long term (current) use of antithrombotics/antiplatelets; Z79.899 Other long term (current) drug therapy; Z88.1 Allergy status to other antibiotic agents; Z88.0 Allergy status to penicillin; Z88.8 Allergy status to other drugs, medicaments and biological substances
CPT/HCPCS: 93458; 87635; C1894; J2250; J2001; J1644; Q9967

== ENCOUNTER → 2021-11-16 | Outpatient (CLI) | payer MEDICARE, BC ==
--- NOTE | 2021-11-17 08:32 | XR ---
EXAMINATION TYPE: XR chest 2V DATE OF EXAM: 11/16/2021 COMPARISON: 10/06/2020 INDICATION: Chronic obstructive pulmonary disease TECHNIQUE: Frontal and lateral views of the chest are obtained. FINDINGS: The heart size is normal. The pulmonary vasculature is normal. The lungs are clear. There is some mild hyperinflation present which can be compatible COPD. Finding s appear stable. IMPRESSION: 1. No acute pulmonary process. 2. Clinical correlation for COPD.
== END | disposition home or self-care (01) ==
LOC: RADXRMAIN 17:00
PROVIDERS: ATTEND Internal Medicine
DX: J44.9 Chronic obstructive pulmonary disease, unspecified (principal)
CPT/HCPCS: 71046

== ENCOUNTER → 2021-12-14 | Outpatient (CLI) | payer MEDICARE, BC ==
[~2021-12-14] MED LIST changes: -ALPRAZolam 0.25 MG TAB PO PRN; -ALPRAZolam 0.5 MG TAB PO PRN; -ASPIRIN 325 MG TAB PO STA; -ATORVASTATIN 80 MG TAB PO STA; +DOBUTamine DRIP for NUC MED 500 MG in DEXTROSE/WATER 1 250ML.BAG IV PRN; -HEPARIN SODIUM,PORCINE 10,000 UNIT in SODIUM CHLORIDE 0.9% 1,000 ML IRRIGATION PRN; -HEPARIN SODIUM,PORCINE 2,500 UNIT in SODIUM CHLORIDE 0.9% 250 ML IRRIGATION PRN; -NITROGLYCERIN SL TABS 0.4 MG TAB SUBLINGUAL PRN; -SODIUM CHLORIDE 0.9% 1,000 ML in EMPTY BAG 1 BAG IV SCH
--- NOTE | 2021-12-14 13:26 | CA ---
Dobutamine Stress Echocardiogram Report Maria Hernandez Age: 66 Gender: M : 1955 Exam Date: 12/14/2021 09:41 Exam Location: [facility] Ordering Physician: Naomi Toledo MD Referring Physician: Naomi Toledo MD Lapel Padder Blindstitch: Willa Bullock RDCS Technologist: Ht (in): 67 Wt (lb): 193 Procedure CPT: Indication: I25.10 Athscl heart disease ICD-9 Codes: Rhythm: Patient History: Cardiac Medications: Medications in past 24 hours: Contrast: Lumason Total Dose (mL): 5 Stress Results Protocol: Dobutamine Peak Dose (???g/kg/min): Duration (min:sec): Atropine:(mg) Target HR: 129 Double Product: 67721 Resting HR: 54 Resting BP: 114 / 55 Peak HR: 139 Peak BP: 194 / 65 Max Predicted HR: 152 91 % Max Predicted HR Stress Summary: BP Response: Reason for Termination: Exceeded target heart rate (85% max predicted) Cardiac Symptoms: Test terminated after reaching target heart rate (85% max predicted) ECG Analysis Resting EKG: Stress EKG: Arrhythmia: Echo Analysis Base Echo Analysis: Low Echo Anaylsis: Peak Echo Analysis: Recovery Echo: MEASUREMENTS (Male/Female) Normal Values CONCLUSIONS Patient underwent dobutamine stress echo with infusion of dobutamine into Stage 3 for a total of 10 minutes and 3 seconds. Patient's maximum heart rate was 139 which represented 91 % age- predicted maximum heart rate. Stress EKG portion: At baseline patient's EKG showed normal sinus rhythm, normal axis, no significant ST or T wave abnormalities. At peak dobutamine infusion, EKG showed no significant change from baseline. Occasional PVCs. Stress echo portion: 2-D echocardiogram was performed in the parasternal long, personal short, apical 2 and apical four-chamber views at rest, low-dose, peak infusion and in recovery. At baseline, echocardiogram showed left ventricular ejection fraction 55% without wall motion abnormalities. With peak infusion, echocardiogram shows improvement in left ventricular ejection fraction, increase contractility, decrease in left ventricular end systolic dimension without wall motion abnormalities consistent with a normal response to dobutamine. Conclusions: 1. Normal stress EKG and echo response to dobutamine infusion without any evidence of inducible ischemia. 2. Normal left ventricular EF 55%. Dr. Kamlesh Bynum DO (Electronically Signed) Final Date: 14 December 2021 13:25
== END | disposition home or self-care (01) ==
LOC: RADNMMAIN 09:17
PROVIDERS: ATTEND Internal Medicine
DX: I25.10 Atherosclerotic heart disease of native coronary artery without angina pectoris (principal)
CPT/HCPCS: C8930; Q9950; 93351

== ENCOUNTER → 2022-01-03 | Outpatient (CLI) | payer MEDICARE, BC ==
[2022-01-03 09:17] LABS: Basophils % (A) 1 %; Eosinophils # (A) 0.2 k/uL (0-0.7); Eosinophils % (A) 6 %; HCT 42.1 % (39.0-53.0); Lymphocytes # (A) 1.4 k/uL (1.0-4.8); Lymphocytes % (A) 33 %; MCH 31.2 pg (25.0-35.0); MCHC 33.2 g/dL (31.0-37.0); MCV 94.1 fL (80.0-100.0); Mean Platelet Volume 7.1; Monocytes # (A) 0.4 k/uL (0-1.0); Monocytes % (A) 10 %; Neutrophils % (A) 49 %; Platelet Count 174 k/uL (150-450); RBC 4.47 m/uL (4.30-5.90); RDW 12.7 % (11.5-15.5); WBC 4.1 k/uL (3.8-10.6)
[2022-01-03 09:31] LABS: Total Eosinophil Count 245 #EOS/uL (150-300)
[2022-01-03 20:24] LABS: Alternaria alternata IgE <0.10 kU/L; Aspergillus fumagatus IgE <0.10 kU/L; Birch IgE <0.10 kU/L; Cat Epith & Dander IgE <0.10 kU/L; Cladosporian herbarum IgE <0.10 kU/L; Cockroach IgE <0.10 kU/L; Dermato. farinae IgE <0.10 kU/L; Dog Dander IgE <0.10 kU/L; Elm IgE <0.10 kU/L; Maple (Box Elder) IgE <0.10 kU/L; Oak IgE <0.10 kU/L; Ragweed,Common IgE <0.10 kU/L; Red Top (Bentgrass) IgE <0.10 kU/L
== END | disposition home or self-care (01) ==
LOC: LABWHC1 08:34
PROVIDERS: ATTEND Internal Medicine
DX: R05.3 Chronic cough (principal)
CPT/HCPCS: 36415; 82785; 85008; 85025; 86003

== ENCOUNTER 2022-02-23 09:46 | Day surgery (SDC) | payer MEDICARE, BC ==
[2022-02-21 14:59] VITALS: BMI 29.2
[~2022-02-23 09:46] MED LIST changes: -DOBUTamine DRIP for NUC MED 500 MG in DEXTROSE/WATER 1 250ML.BAG IV PRN; +LACTATED RINGERS 1,000 ML IV SCH; +LIDOCAINE 1% (10MG/ML) FOR IV START INTRADERMA PRN; +ONDANSETRON 4 MG/2 ML VIAL IVP PRN
[2022-02-23 10:48] VITALS: RESP 16; TEMP 96.9
[2022-02-23] MEDS ORDERED: PROPOFOL 10 MG/ML 20 ML VIAL IV ONE (11:24)
--- NOTE | 2022-02-23 11:33 | P.PCN ---
Date of Procedure: 02/23/22 Procedure(s) Performed: BRIEF HISTORY: Patient is a 66-year-old, pleasant, male scheduled for an upper endoscopy as a part of evaluation of long-standing history of GERD. He is presently on Protonix 40 mg daily and still remains symptomatic. PROCEDURE PERFORMED: Esophagogastroduodenoscopy with biopsy. PREOPERATIVE DIAGNOSIS: Long-standing history of GERD. IV sedation per anesthesia. PROCEDURE: After informed consent was obtained, the patient was brought into the endoscopy unit. IV sedation was administered by Anesthesia under continuous monitoring. Initially the Olympus GIF-140 video endoscope was inserted into the mouth. Esophagus intubated without any difficulty. It was gradually advanced into the stomach and duodenum and carefully examined. The bulb and the second part of the duodenum appeared normal. The scope at this time was withdrawn to the stomach, adequately insufflated with air, and upon careful examination, mucosa of the antrum had mild patchy areas of erythema and biopsies were done from this area. The, body, cardia and the fundus appeared normal. The scope was then withdrawn into the esophagus. The GE junction was located at 43 cm from the incisors. The esophagus appeared normal. There were no erosions or ulcerations seen, biopsies were done from the distal esophagus and the patient tolerated the procedure well. IMPRESSION: 1. Mild antral gastritis. 2. No evidence of esophagitis or Salas's esophagus. RECOMMENDATIONS: The findings of this examination were discussed with the patient well as his family. Follow with the biopsy results. He was advised to increase the Protonix 40 mg twice daily and follow antireflux measures..
[2022-02-23 12:02] VITALS: BP 132/77; PULSE 68
== END 2022-02-23 12:16 | disposition home or self-care (01) ==
LOC: ORWHC2ENDO 09:46
PROVIDERS: ATTEND Internal Medicine Gastroenterology
DX: K29.50 Unspecified chronic gastritis without bleeding (principal); K21.00 Gastro-esophageal reflux disease with esophagitis, without bleeding; I25.10 Atherosclerotic heart disease of native coronary artery without angina pectoris; I10 Essential (primary) hypertension; E78.5 Hyperlipidemia, unspecified; J45.909 Unspecified asthma, uncomplicated; F17.210 Nicotine dependence, cigarettes, uncomplicated; Z79.899 Other long term (current) drug therapy; Z79.82 Long term (current) use of aspirin; Z88.0 Allergy status to penicillin; Z98.890 Other specified postprocedural states; Z88.8 Allergy status to other drugs, medicaments and biological substances
CPT/HCPCS: 88305; 43239; J2704

== ENCOUNTER → 2022-03-15 | Outpatient (CLI) | payer MEDICARE, BC ==
--- NOTE | 2022-03-15 07:54 | US ---
EXAMINATION TYPE: US duplex aorta DATE OF EXAM: 03/15/2022 COMPARISON: NONE CLINICAL HISTORY: [id number] CURRENT EVERY DAY SMOKER. Smoker, AAA screening TECHNIQUE: Multiple sonographic images of the abdominal aorta are obtained. FINDINGS: EXAM MEASUREMENTS: Abdominal Aorta: Proximal: 1.8 x 2.2 cm Mid: 2.0 x 1.9 cm Distal: 2.5 x 2.8 cm Bifurcation: JAKE: 1.6 x 1.5 cm HARITHA: 1.5 x 1.5 cm CLEANER HOUSEKEEPING NOTES: Proximal and mid portions of aorta appear wnl, distal portion shows fusiform widening with small sa ccular aortic wall projections, however distal portion does not measure >3cm at this time IMPRESSION: Ectatic distal abdominal aorta without greater than 3.0 cm AAA
--- NOTE | 2022-03-15 08:19 | CTL ---
EXAMINATION TYPE: CT Low Dose Lung DATE OF EXAM ORDERED: 03/15/2022 HISTORY: Long-term tobacco use. Lung cancer screening CT DLP: 98.[address] CTDI: 2.4 mGy Automated exposure control for dose reduction was used. SCREENING VISIT: Fourth after baseline COMPARISON: Prior studies 2020 through 2017 TECHNIQUE: Low dose computed tomography scan was performed through the chest at 1 mm thick sections a nd reconstructed images in multiple planes at 1 mm and [address] DIAGNOSTIC QUALITY: Satisfactory FINDINGS: LUNG NODULES: Present, detailed below: Stable 3 mm calcified nodule or granuloma superior right lower lobe axial image 188. No new or enlarging suspicious noncalcified greater than 4 mm nodules. LUNGS: COPD: Severity: Mild Fibrosis: Severity: Minimal Lymph nodes: No greater than 1 cm Other findings: None. BILATERAL PLEURAL SPACE: Effusion: None Calcification: None Thickening: None Pneumothorax: None HEART: Heart Size: Normal Coronary calcification: Moderate Pericardial effusion: None OTHER FINDINGS: Upper abdomen: Cholecystectomy clips are redemonstrated. Bony thorax: [id number] multilevel spurring in the spine redemonstrated. Supraclavicular region: None. Other: Small degree of subareolar gynecomastia redemonstrated IMPRESSION: No suspicious new or enlarging noncalcified nodules. FOLLOW UP CT CHEST RECOMMENDATION: Consider continued Annual low-dose lung screening CT. CT LUNG RAD: Lung-Rad 2 Benign Appearance or Behavior
== END ==
LOC: RADCTMAIN 06:35
PROVIDERS: ATTEND Family Medicine
DX: Z12.2 Encounter for screening for malignant neoplasm of respiratory organs (principal); Z13.6 Encounter for screening for cardiovascular disorders; I77.811 Abdominal aortic ectasia; F17.210 Nicotine dependence, cigarettes, uncomplicated
CPT/HCPCS: 71271; 93979

== ENCOUNTER 2022-07-08 11:51 | Observation (INO) | payer MEDICARE, BC ==
[2022-07-08 13:50] LABS: Basophils # (A) 0.1 k/uL (0-0.2); Basophils % (A) 0 %; Eosinophils # (A) 0.1 k/uL (0-0.7); Eosinophils % (A) 1 %; HCT 40.4 % (39.0-53.0); Lymphocytes # (A) 2.5 k/uL (1.0-4.8); Lymphocytes % (A) 21 %; MCH 31.1 pg (25.0-35.0); MCHC 34.6 g/dL (31.0-37.0); MCV 89.7 fL (80.0-100.0); Mean Platelet Volume 6.8; Monocytes # (A) 0.7 k/uL (0-1.0); Monocytes % (A) 6 %; Neutrophils # (A) 8.5 k/uL (1.3-7.7); Neutrophils % (A) 71 %; Platelet Count 178 k/uL (150-450); RDW 12.8 % (11.5-15.5); WBC 12.1 k/uL (3.8-10.6)
[2022-07-08 14:01] LABS: ALT 39 U/L (4-49); AST 27 U/L (17-59); Acetaminophen <10.0 ug/mL; African American GFR (CKD) >90 (>60 ml/min/1.73 sqM); Albumin 3.7 g/dL (3.5-5.0); Alcohol <10 mg/dL; Alkaline Phosphatase 46 U/L (38-126); Anion Gap 7 mmol/L; Blood Urea Nitrogen 27 mg/dL (9-20); Calcium 8.1 mg/dL (8.4-10.2); Carbon Dioxide 25 mmol/L (22-30); Chloride 106 mmol/L (98-107); Glucose 106 mg/dL (74-99); Non-African American GFR(CKD) 87 (>60 ml/min/1.73 sqM); Potassium 3.8 mmol/L (3.5-5.1); Salicylate <1.0 mg/dL; Sodium 138 mmol/L (137-145); Total Bilirubin 0.8 mg/dL (0.2-1.3); Total Protein 5.8 g/dL (6.3-8.2)
--- NOTE | 2022-07-08 14:01 | CT ---
EXAMINATION TYPE: CT brain wo con CT DLP: 1064 mGycm, Automated exposure control for dose reduction was used. DATE OF EXAM: 07/08/2022 1:50 PM COMPARISON: CTA head 10/18/2019, CT ICA 11/29/2019 CLINICAL INDICATION:Male, 66 years old with history of Altered mental status, AMS, sent by PCP TECHNIQUE: Brain: Multiple axial CT images of the brain were obtained without IV contrast. Coronal and sagittal reformats reviewed. FINDINGS: Brain: Extra-axial spaces: No abnormal extra-axial fluid collections. Ventricular system: Within normal limits Cerebral parenchyma: No acute intraparenchymal hemorrhage or mass effect. Scattered multifocal regio ns of low-attenuation with preservation wong-white junction interface throughout the bilateral fronta l and parietal lobes. Cerebellum: Unremarkable. Mass effect: No evidence of midline shift. Intracranial vasculature: unremarkable Soft tissues: Normal. Calvarium/osseous structures: No depressed skull fracture. Paranasal sinuses and mastoid air cells: Increased left external auditory canal soft tissue thickenin g from prior examination in 2019. Visualized orbits: Orbital contents are intact. IMPRESSION: 1. Nonspecific multifocal scattered regions of subcortical low-attenuation within the bilateral front al and parietal lobes. This can be seen with a variety etiologies such as demyelination or metastasis versus other etiologies. Further evaluation with MRI brain with and without IV contrast is recommend ed. 2. Increased left external auditory canal soft tissue thickening from prior examination in 2019. Dire ct visualization is recommended with consideration for CT IAC.
[2022-07-08 14:14] LABS: INR 0.9 (<1.2); Prothrombin Time 10.1 sec (9.0-12.0)
[2022-07-08 14:21] LABS: Partial Thromboplastin Time 20.4 sec (22.0-30.0)
--- NOTE | 2022-07-08 14:28 | ED ---
General Adult HPI <Jos Campuzano - Last Filed: 07/08/22 20:14> - General Source: patient Mode of arrival: ambulatory Limitations: no limitations <Claribel Dahl - Last Filed: 07/14/22 05:25> - General Chief complaint: Altered Mental Status Stated complaint: Dehydration-Sent by PCP Time Seen by Provider: 07/08/22 12:25 - History of Present Illness Initial comments: 66-year-old male with past history of anxiety who presents to the emergency department with paranoid behavior. is at bedside and helps provide history. States that he tested positive for Covid on the eighth. He started Paxil that shortly after. He was additionally placed on dexamethasone 6 mg daily for 5 days. Patient continued to have a cough and therefore he was placed on a second round of steroids. Today would have been his 10th day total however he did not take the steroid this morning. For the past week she has had significant paranoia per the . Reports that he is normally very anxious however he has been extremely paranoid. He is turning all the lights in the house off because he is afraid that there "spending too much money". 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 states that he has never had paranoid behavior like this before. They followed up with Dr. Raza today who recommended that the patient over for evaluation. He denies any head trauma. No headaches or visual changes. No fevers. When he took the paxlovid, he did hold his statin and took a half dose of his Valium however he is now back on his full dose. He denies any unilateral weakness. No other alleviating, precipitating or modifying factors (Claribel Dahl) - Related Data Home Medications Medication Instructions Recorded Confirmed Diphenox-Atrop 2.5-0.025 mg 2 tab PO BID 03/29/16 07/08/22 [Lomotil] diazePAM [Valium] 10 mg PO TID 03/29/16 07/08/22 Vit C/E/Zn/Coppr/Lutein/Zeaxan 1 cap PO BID 12/08/20 07/08/22 [Preservision Areds 2 Softgel] Aspirin EC [Ecotrin Low Dose] 81 mg PO HS 02/21/22 07/08/22 Pantoprazole [Protonix] 40 mg PO BID 02/22/22 07/08/22 amLODIPine [Norvasc] 5 mg PO HS 02/22/22 07/08/22 Budesonide/Glycopyr/Formoterol 2 puff INHALATION DIRECTED 07/08/22 07/08/22 [Breztri Aerosphere Inhaler] Cholecalciferol [Vitamin D3 (25 50 mcg PO HS 07/08/22 07/08/22 Mcg = 1000 Iu)] Dextroamphetamine/Amphetamine 10 mg PO BID 07/08/22 07/08/22 [Adderall] Loratadine [Claritin] 10 mg PO DAILY 07/08/22 07/08/22 Rosuvastatin [Crestor] 20 mg PO HS 07/08/22 07/08/22 Previous Rx's Medication Instructions Recorded Albuterol Nebulized [Ventolin 2.5 mg INHALATION RT-QID 30 Days 07/09/22 Nebulized] #1 ml Nicotine 21Mg/24Hr Patch [Habitrol] 1 patch TRANSDERM DAILY 30 Days 07/09/22 #30 patch Allergies Allergy/AdvReac Type Severity Reaction Status Date / Time cephalexin Allergy Unknown Verified 07/08/22 15:42 levofloxacin [From Levaquin] Allergy SEIZURE Verified 07/08/22 15:42 LIKE REACTION metoprolol Allergy Dyspnea Verified 07/08/22 15:42 Penicillins Allergy Rash/Hives Verified 07/08/22 15:42 pregabalin [From Lyrica] Allergy SEIZURE Verified 07/08/22 15:42 LIKE REACTION Review of Systems ROS Other: All systems not noted in ROS Statement are negative. <Jos Campuzano - Last Filed: 07/08/22 20:14> ROS Other: All systems not noted in ROS Statement are negative. <Claribel Dahl - Last Filed: 07/14/22 05:25> ROS Statement: Those systems with pertinent positive or pertinent negative responses have been documented in the HPI. Past Medical History Past Medical History: Asthma, COPD, Eye Disorder, GERD/Reflux, Hyperlipidemia, Osteoarthritis (OA) Additional Past Medical History / Comment(s): Hx gastric ulcers, HX COLON P OLYPS, IBS, MACULAR DEGENERATION, HX. MASTOIDITIS LEfT EAR, TEMPORAL ARTERITIS, 3 discs pinching nerves in neck, recent SOB w/exertion, recent stress test History of Any Multi-Drug Resistant Organisms: None Reported Past Surgical History: Cholecystectomy, Orthopedic Surgery Additional Past Surgical History / Comment(s): Right ACL repair, COLONOSCOPY. Past Anesthesia/Blood Transfusion Reactions: No Reported Reaction Past Psychological History: Anxiety, Depression Smoking Status: Current every day smoker Past Alcohol Use History: None Reported Past Drug Use History: None Reported - Past Family History Father Family Medical History: CVA/TIA Mother Family Medical History: Cancer Additional Family Medical History / Comment(s): Lung Cancer. Brother(s) Family Medical History: Cancer Additional Family Medical History / Comment(s): Pacemaker, Esophageal Cancer, Prostate Cancer. Sister(s) Family Medical History: Cancer Additional Family Medical History / Comment(s): Breast Cancer. <Claribel Dahl - Last Filed: 07/14/22 05:25> General Exam Limitations: no limitations General appearance: alert, in no apparent distress Head exam: Present: atraumatic, normocephalic, normal inspection Eye exam: Present: normal appearance, PERRL, EOMI. Absent: scleral icterus, conjunctival injection, periorbital swelling ENT exam: Present: normal exam, mucous membranes moist Neck exam: Present: normal inspection. Absent: tenderness, meningismus, lymphadenopathy Respiratory exam: Present: normal lung sounds bilaterally. Absent: respiratory distress, wheezes, rales, rhonchi, stridor Cardiovascular Exam: Present: regular rate, normal rhythm, normal heart sounds. Absent: systolic murmur, diastolic murmur, rubs, gallop, clicks GI/Abdominal exam: Present: soft, normal bowel sounds. Absent: distended, tenderness, guarding, rebound, rigid Extremities exam: Present: normal inspection, full ROM, normal capillary refill. Absent: tenderness, pedal edema, joint swelling, calf tenderness Back exam: Present: normal inspection Neurological exam: Present: alert, oriented X3, CN II-XII intact Psychiatric exam: Present: normal affect, normal mood Skin exam: Present: warm, dry, intact, normal color. Absent: rash <Claribel Dahl - Last Filed: 07/14/22 05:25> Course <Jos Campuzano - Last Filed: 07/08/22 20:14> Vital Signs 07/08/22 07/08/22 07/08/22 11:54 13:32 14:37 Temperature 98.1 F 98.1 F Pulse Rate 77 70 71 Respiratory 2 L 18 16 Rate Blood Pressure 168/71 157/91 148/82 O2 Sat by Pulse 99 96 96 Oximetry 07/08/22 07/08/22 07/08/22 18:30 20:22 20:33 Temperature Pulse Rate 70 70 72 Respiratory 16 Rate Blood Pressure 148/82 O2 Sat by Pulse 97 Oximetry 07/08/22 07/08/22 07/09/22 22:00 23:00 00:00 Temperature Pulse Rate 80 72 71 Respiratory 16 16 16 Rate Blood Pressure 148/68 121/60 121/63 O2 Sat by Pulse 99 97 97 Oximetry 07/09/22 07/09/22 07/09/22 01:00 02:00 03:00 Temperature Pulse Rate 72 71 63 Respiratory 16 16 16 Rate Blood Pressure 126/70 138/69 132/77 O2 Sat by Pulse 97 98 97 Oximetry 07/09/22 07/09/22 07/09/22 04:00 05:00 06:00 Temperature Pulse Rate 64 70 65 Respiratory 16 16 16 Rate Blood Pressure 132/76 134/83 143/94 O2 Sat by Pulse 98 98 95 Oximetry 07/09/22 07/09/22 07/09/22 08:20 08:30 11:31 Temperature 98.7 F Pulse Rate 78 76 93 Respiratory 16 Rate Blood Pressure 144/79 O2 Sat by Pulse 94 L Oximetry - Reevaluation(s) Reevaluation #1: 07/08/22 20:14 I was asked to provide an order for nicotine patch for this patient. There was no other interaction. (Jos Campuzano) EKG Findings - EKG Comments: EKG Findings:: EKG demonstrates sinus rhythm with a rate of 66. NE interval 188. QRS 95. QTC 399. No acute ST segment elevations or depressions <Claribel Dahl - Last Filed: 07/14/22 05:25> Medical Decision Making - Lab Data Result diagrams: 07/08/22 13:12 07/08/22 13:12 <Jos Campuzano - Last Filed: 07/08/22 20:14> - Lab Data Result diagrams: 07/09/22 06:56 07/09/22 06:56 <Claribel Dahl - Last Filed: 07/14/22 05:25> - Medical Decision Making Was pt. sent in by a medical professional or institution (, [facility], TRAFFIC TECHNICIAN, urgent care, hospital, or care home...) When possible be specific @ -Dr. Murphy Did you speak to anyone other than the patient for history (EMS, parent, family, police, friend...)? What history was obtained from this source @ - Did you review nursing and triage notes (agree or disagree)? Why? @ -I reviewed and agree with nursing and triage notes Were old charts reviewed (outside hosp., previous admission, EMS record, old EKG, old radiological studies, urgent care reports/EKG's, care home records)? Report findings @ -No old charts were reviewed Differential Diagnosis (chest pain, altered mental status, abdominal pain women, abdominal pain men, vaginal bleeding, weakness, fever, dyspnea, syncope, headache, dizziness, GI bleed, back pain, seizure, CVA, palpatations, mental health, musculoskeletal)? @ -CVA, brain cancer, UTI, sepsis, concussion, dementia, medication side effect EKG interpreted by me (3pts min.). @ -As above X-rays interpreted by me (1pt min.). @ -yes CT interpreted by me (1pt min.). @ -yes U/S interpreted by me (1pt. min.). @ -None done What testing was considered but not performed or refused? (CT, X-rays, U/S, labs )? Why? @ -None What meds were considered but not given or refused? Why? @ -None Did you discuss the management of the patient with other professionals (professionals i.e. , [facility], TRAFFIC TECHNICIAN, lab, RT, psych nurse, social sciences lecturer, entertainment lawyer, teacher, chief wellness officer, case maker)? Give summary @ -Dr. Conn, Dr. Murphy Was smoking cessation discussed for >3mins.? @ -No Was critical care preformed (if so, how long)? @ -No Were there social determinants of health that impacted care today? How? (Homelessness, low income, unemployed, alcoholism, drug addiction, transportation, low edu. Level, literacy, decrease access to med. care, halfway, rehab)? @ -No Was there de-escalation of care discussed even if they declined (Discuss DNR or withdrawal of care, Hospice)? DNR status @ -No What co-morbidities impacted this encounter? (DM, HTN, Smoking, COPD, CAD, Cancer, CVA, ARF, Chemo, Hep., AIDS, mental health diagnosis, sleep apnea, morbid obesity)? @ -COPD, htn, hld Was patient admitted / discharged? Hospital course, mention meds given and route, prescriptions, significant lab abnormalities, going to OR and other pertinent info. @ - Upon arrival patient is placed into room 22. A thorough history and physical exam was performed. IV access established laboratory studies were cond ucted. CT of the brain is performed. I did consult Dr. Mata in regards CT results. Patient will be admitted to Dr. Raza with Dr. Mata on consult. Patient currently pending a bed on the floor Undiagnosed new problem with uncertain prognosis? @ -yes Drug Therapy requiring intensive monitoring for toxicity (Heparin, Nitro, Insulin, Cardizem)? @ -No Were any procedures done? @ -No Diagnosis/symptom? @ -acute delirium, suspected secondary to steroid use, recent covid infection Acute, or Chronic, or Acute on Chronic? @ -acute Uncomplicated (without systemic symptoms) or Complicated (systemic symptoms)? @ -complicated Side effects of treatment? @ -No Exacerbation, Progression, or Severe Exacerbation? @ -No Poses a threat to life or bodily function? How? (Chest pain, [place], [place], pneumonia, PE, COPD, DKA, ARF, appy, cholecystitis, CVA, Diverticulitis, Homicidal, Mary cidal, threat to staff... and all critical care pts) @ -yes (Claribel Dahl) - Lab Data Lab Results 07/08/22 07/08/22 07/08/22 Range/Units 13:12 13:12 13:12 WBC 12.1 H (3.8-10.6) k/uL RBC 4.50 (4.30-5.90) m/uL Hgb 14.0 (13.0-17.5) gm/dL Hct 40.4 (39.0-53.0) % MCV 89.7 (80.0-100.0) fL MCH 31.1 (25.0-35.0) pg MCHC 34.6 (31.0-37.0) g/dL RDW 12.8 (11.5-15.5) % Plt Count 178 (150-450) k/uL MPV 6.8 Neutrophils % 71 % Lymphocytes % 21 % Monocytes % 6 % Eosinophils % 1 % Basophils % 0 % Neutrophils # 8.5 H (1.3-7.7) k/uL Lymphocytes # 2.5 (1.0-4.8) k/uL Monocytes # 0.7 (0-1.0) k/uL Eosinophils # 0.1 (0-0.7) k/uL Basophils # 0.1 (0-0.2) k/uL PT 10.1 (9.0-12.0) sec INR 0.9 (<1.2) APTT 20.4 L (22.0-30.0) sec Sodium (137-145) mmol/L Potassium (3.5-5.1) mmol/L Chloride (98-107) mmol/L Carbon Dioxide (22-30) mmol/L Anion Gap mmol/L BUN (9-20) mg/dL Creatinine (0.66-1.25) mg/dL Est GFR (CKD-EPI)AfAm (>60 ml/min/1.73 sqM) Est GFR (CKD-EPI)NonAf (>60 ml/min/1.73 sqM) Glucose (74-99) mg/dL Calcium (8.4-10.2) mg/dL Total Bilirubin (0.2-1.3) mg/dL AST (17-59) U/L ALT (4-49) U/L Alkaline Phosphatase (38-126) U/L Ammonia (<30) umol/L Troponin I (0.000-0.034) ng/mL Total Protein (6.3-8.2) g/dL Albumin (3.5-5.0) g/dL TSH (0.465-4.680) mIU/L Urine Color Urine Appearance (Clear) Urine pH (5.0-8.0) Ur Specific [place] (1.001-1.035) Urine Protein (Negative) Urine Glucose (UA) (Negative) Urine Ketones (Negative) Urine Blood (Negative) Urine Nitrite (Negative) Urine Bilirubin (Negative) Urine Urobilinogen (<2.0) mg/dL Ur Leukocyte Esterase (Negative) Salicylates mg/dL Urine Opiates Screen Not Detected (NotDetected) Ur Oxycodone Screen Not Detected (NotDetected) Urine Methadone Screen Not Detected (NotDetected) Ur Propoxyphene Screen Not Detected (NotDetected) Acetaminophen ug/mL Ur Barbiturates Screen Not Detected (NotDetected) U Tricyclic Antidepress Not Detected (NotDetected) Ur Phencyclidine Scrn Not Detected (NotDetected) Ur Amphetamines Screen Detected H (NotDetected) U Methamphetamines Scrn Not Detected (NotDetected) U Benzodiazepines Scrn Detected H (NotDetected) Urine Cocaine Screen Not Detected (NotDetected) U Marijuana (THC) Screen Not Detected (NotDetected) Serum Alcohol mg/dL Coronavirus (PCR) (Not Detectd) 07/08/22 07/08/22 07/08/22 Range/Units 13:12 13:12 13:12 WBC (3.8-10.6) k/uL RBC (4.30-5.90) m/uL Hgb (13.0-17.5) gm/dL Hct (39.0-53.0) % MCV (80.0-100.0) fL MCH (25.0-35.0) pg MCHC (31.0-37.0) g/dL RDW (11.5-15.5) % Plt Count (150-450) k/uL MPV Neutrophils % % Lymphocytes % % Monocytes % % Eosinophils % % Basophils % % Neutrophils # (1.3-7.7) k/uL Lymphocytes # (1.0-4.8) k/uL Monocytes # (0-1.0) k/uL Eosinophils # (0-0.7) k/uL Basophils # (0-0.2) k/uL PT (9.0-12.0) sec INR (<1.2) APTT (22.0-30.0) sec Sodium 138 (137-145) mmol/L Potassium 3.8 (3.5-5.1) mmol/L Chloride 106 (98-107) mmol/L Carbon Dioxide 25 (22-30) mmol/L Anion Gap 7 mmol/L BUN 27 H (9-20) mg/dL Creatinine 0.90 (0.66-1.25) mg/dL Est GFR (CKD-EPI)AfAm >90 (>60 ml/min/1.73 sqM) Est GFR (CKD-EPI)NonAf 87 (>60 ml/min/1.73 sqM) Glucose 106 H (74-99) mg/dL Calcium 8.1 L (8.4-10.2) mg/dL Total Bilirubin 0.8 (0.2-1.3) mg/dL AST 27 (17-59) U/L ALT 39 (4-49) U/L Alkaline Phosphatase 46 (38-126) U/L Ammonia (<30) umol/L Troponin I 0.014 (0.000-0.034) ng/mL Total Protein 5.8 L (6.3-8.2) g/dL Albumin 3.7 (3.5-5.0) g/dL TSH 2.040 (0.465-4.680) mIU/L Urine Color Yellow Urine Appearance Clear (Clear) Urine pH 6.0 (5.0-8.0) Ur Specific [place] 1.014 (1.001-1.035) Urine Protein Negative (Negative) Urine Glucose (UA) Negative (Negative) Urine Ketones Negative (Negative) Urine Blood Negative (Negative) Urine Nitrite Negative (Negative) Urine Bilirubin Negative (Negative) Urine Urobilinogen <2.0 (<2.0) mg/dL Ur Leukocyte Esterase Negative (Negative) Salicylates <1.0 mg/dL Urine Opiates Screen (NotDetected) Ur Oxycodone Screen (NotDetected) Urine Methadone Screen (NotDetected) Ur Propoxyphene Screen (NotDetected) Acetaminophen <10.0 ug/mL Ur Barbiturates Screen (NotDetected) U Tricyclic Antidepress (NotDetected) Ur Phencyclidine Scrn (NotDetected) Ur Amphetamines Screen (NotDetected) U Methamphetamines Scrn (NotDetected) U Benzodiazepines Scrn (NotDetected) Urine Cocaine Screen (NotDetected) U Marijuana (THC) Screen (NotDetected) Serum Alcohol <10 mg/dL Coronavirus (PCR) (Not Detectd) 07/08/22 07/08/22 Range/Units 13:12 13:12 WBC (3.8-10.6) k/uL RBC (4.30-5.90) m/uL Hgb (13.0-17.5) gm/dL Hct (39.0-53.0) % MCV (80.0-100.0) fL MCH (25.0-35.0) pg MCHC (31.0-37.0) g/dL RDW (11.5-15.5) % Plt Count (150-450) k/uL MPV Neutrophils % % Lymphocytes % % Monocytes % % Eosinophils % % Basophils % % Neutrophils # (1.3-7.7) k/uL Lymphocytes # (1.0-4.8) k/uL Monocytes # (0-1.0) k/uL Eosinophils # (0-0.7) k/uL Basophils # (0-0.2) k/uL PT (9.0-12.0) sec INR (<1.2) APTT (22.0-30.0) sec Sodium (137-145) mmol/L Potassium (3.5-5.1) mmol/L Chloride (98-107) mmol/L Carbon Dioxide (22-30) mmol/L Anion Gap mmol/L BUN (9-20) mg/dL Creatinine (0.66-1.25) mg/dL Est GFR (CKD-EPI)AfAm (>60 ml/min/1.73 sqM) Est GFR (CKD-EPI)NonAf (>60 ml/min/1.73 sqM) Glucose (74-99) mg/dL Calcium (8.4-10.2) mg/dL Total Bilirubin (0.2-1.3) mg/dL AST (17-59) U/L ALT (4-49) U/L Alkaline Phosphatase (38-126) U/L Ammonia <9 (<30) umol/L Troponin I (0.000-0.034) ng/mL Total Protein (6.3-8.2) g/dL Albumin (3.5-5.0) g/dL TSH (0.465-4.680) mIU/L Urine Color Urine Appearance (Clear) Urine pH (5.0-8.0) Ur Specific [place] (1.001-1.035) Urine Protein (Negative) Urine Glucose (UA) (Negative) Urine Ketones (Negative) Urine Blood (Negative) Urine Nitrite (Negative) Urine Bilirubin (Negative) Urine Urobilinogen (<2.0) mg/dL Ur Leukocyte Esterase (Negative) Salicylates mg/dL Urine Opiates Screen (NotDetected) Ur Oxycodone Screen (NotDetected) Urine Methadone Screen (NotDetected) Ur Propoxyphene Screen (NotDetected) Acetaminophen ug/mL Ur Barbiturates Screen (NotDetected) U Tricyclic Antidepress (NotDetected) Ur Phencyclidine Scrn (NotDetected) Ur Amphetamines Screen (NotDetected) U Methamphetamines Scrn (NotDetected) U Benzodiazepines Scrn (NotDetected) Urine Cocaine Screen (NotDetected) U Marijuana (THC) Screen (NotDetected) Serum Alcohol mg/dL Coronavirus (PCR) Not Detected (Not Detectd) Disposition <Jos Campuzano - Last Filed: 07/08/22 20:14> Is patient prescribed a controlled substance at d/c from ED?: No Decision to Admit Reason: Admit from EC Decision Date: 07/08/22 Decision Time: 15:27 <Claribel Dahl - Last Filed: 07/14/22 05:25> Clinical Impression: Acute encephalopathy Disposition: ADMITTED IP TO THIS [facility] Condition: Stable
[2022-07-08 14:39] VITALS: RESP 16
--- NOTE | 2022-07-08 14:43 | XR ---
EXAMINATION TYPE: XR chest 2V DATE OF EXAM: 07/08/2022 2:38 PM COMPARISON: Chest radiographs from 11/16/2021 TECHNIQUE: XR chest 2V Frontal and lateral views of the chest. CLINICAL INDICATION:Male, 66 years old with history of altered mental status; FINDINGS: Lungs/Pleura: There is flattening of the diaphragm with increased lucency of the lungs. No evidence o f pneumothorax, pleural effusion or focal consolidation. Pulmonary vascularity: Unremarkable. Heart/mediastinum: Cardiomediastinal silhouette is unremarkable. Musculoskeletal: Multiple level degenerative disc disease changes seen throughout the spine. No acute osseous abnormality. IMPRESSION: 1. No acute cardiopulmonary disease process. 2. COPD changes.
[2022-07-08 14:57] LABS: Appearance,Urine Clear (Clear); Bilirubin,Urine Negative (Negative); Blood,Urine Negative (Negative); Color,Urine Yellow; Glucose,Urine (UA) Negative (Negative); Ketones,Urine Negative (Negative); Leukocyte Esterase,Urine Negative (Negative); Nitrite,Urine Negative (Negative); Protein,Urine Negative (Negative); Specific Gravity,Urine 1.014 (1.001-1.035); Urobilinogen,Urine <2.0 mg/dL (<2.0)
[2022-07-08 15:11] LABS: Amphetamine Screen,Urine Detected (NotDetected); Barbiturate Screen,Urine Not Detected (NotDetected); Benzodiazepines Screen,Urine Detected (NotDetected); Cocaine Screen,Urine Not Detected (NotDetected); Methadone Screen, Urine Not Detected (NotDetected); Opiate Screen,Urine Not Detected (NotDetected); Oxycodone Screen, Urine Not Detected (NotDetected); Phencyclidine Screen,Urine Not Detected (NotDetected); Tricyclic Antidepressant,Urine Not Detected (NotDetected); Urn Cannabinoid Scrn Not Detected (NotDetected)
[2022-07-08] MEDS ORDERED: NALOXONE 0.4 MG/ML 1 ML VIAL IV PRN (15:27)
[2022-07-08] MEDS ORDERED: IOPAMIDOL CONTRAST (ORAL USE) VIAL PO PRN (16:24)
--- NOTE | 2022-07-08 17:13 | P.CNNES ---
History of Present Illness Consult date: 07/08/22 Requesting physician: Claribel Dahl Reason for Consult: Acute encephalopathy History of Present Illness: Patient is a 66-year-old male with history of hyperlipidemia, who recently suffered from Covid on 06/24/2022 when he became positive. He was given Paxlovid, which is dexamethasone 6 mg daily for 7 days. His condition did not improve, therefore he was given another pack for 7 days. Patient developed mental status change starting 07/05/2022, which has progressively got worse particularly in the last 2 days. He has developed panic attacks, anxiety attacks, could make decision, couldn't rationalize, would look at his cell phone for an hour and not understand what was going on. He was very aggressive, mean towards his , paranoid, my lights were on, while the TV was running, as it is going to cost too much. He was extremely scared, would be upset via the night lights were on. He was documenting everything to the second not making sense. He was repeating things 4-5 times in one day. He would see something on the TV, like a medication recall and would be concerned about it and would be telling his to tell his daughter, who is not on those medication either. Patient has noticed some slurred speech beyond what one gets from drinking. He was very dizzy, has 2 old or the lehman, he would cry continuously. He would go from one extreme to another, paranoid, indecisive, dizzy, not thinking clearly. He went to the office, and was paranoid, that he will be audited and they will t zully everything from him. He was talking continuously. Patient states that he couldn't form words what he wanted to say, and would not come out right. Patient's has not noticed any slurred speech or gibberish speech otherwise. Patient's states that she talk to him 121, telling that he is not right, and he then broke down. He arrived to the ER today at 11:51 AM. Patient was supposed to have last tablet of dexamethasone today, but she did not give to him today. Patient and his 5 believes that he is about 50% better, but still gets somewhat edgy. He is having difficulty with numbers, as he is accounted he is very good in maths. He denies any focal neurological symptoms otherwise like focal numbness, tingling or visual disturbance. Patient denies diabetes or hypertension. He does have hyperlipidemia controlled with Crestor. He denies any alcohol use or marijuana. Patient has history of smoking 1-2 pack per day for 54 years. He started smoking at age 13, smokes 2 pack per day from May through January when it is a tax season whereas rest of the year he smokes one pack per day. Patient has history of side effects from Lyrica as he developed strokelike symptoms. Patient's EKG shows sinus tachycardia, chest x-ray showed COPD changes otherwise no acute process. CT of the head showed nonspecific multifocal scattered regions of subcortical low attenuation within the bilateral frontal and parietal. This can be seen with a variety of etiologies such as demyelination or metastasis versus other etiologies. Further evaluation with MRI brain with and without IV contrast is recommended. Increase left external auditory canals soft tissue thickening from prior examination in 2020. Direct visualization is recommended with consideration for CT IAC. I personally reviewed CT head, and appears small vessel disease. Does not appear any acute ischemic process for metastasis. Blood test shows normal CBC, CMP, PT/PTT, ammonia <9, troponin negative. Review of Systems Constitutional: Denies chills, Denies fever Eyes: denies blurred vision, denies pain Ears: deny: decreased hearing, ear discharge Ears, nose, mouth and throat: Reports sore throat, Denies headache Cardiovascular: Reports shortness of breath, Denies chest pain Respiratory: Reports congestion, Reports cough, Denies wheezing Gastrointestinal: Denies abdominal pain, Denies diarrhea, Denies nausea, Denies vomiting Musculoskeletal: Reports gait dysfunction, Denies frequent falls, Denies myalgias Integumentary: Denies pruritus, Denies rash Neurological: Reports as per HPI Psychiatric: Reports anxiety, Reports confusion, Reports mood swings, Reports paranoia Endocrine: Denies fatigue, Denies weight change Past Medical History Past Medical History: Asthma, COPD, Eye Disorder, GERD/Reflux, Hyperlipidemia, Osteoarthritis (OA) Additional Past Medical History / Comment(s): Hx gastric ulcers, HX COLON POLYPS, IBS, MACULAR DEGENERATION, HX. MASTOIDITIS LEfT EAR, TEMPORAL ARTERITIS, 3 discs pinching nerves in neck, recent SOB w/exertion, recent stress test History of Any Multi-Drug Resistant Organisms: None Reported Past Surgical History: Cholecystectomy, Orthopedic Surgery Additional Past Surgical History / Comment(s): Right ACL repair, COLONOSCOPY. Past Anesthesia/Blood Transfusion Reactions: No Reported Reaction Past Psychological History: Anxiety, Depression Smoking Status: Current every day smoker Past Alcohol Use History: None Reported Past Drug Use History: None Reported - Past Family History Father Family Medical History: CVA/TIA Mother Family Medical History: Cancer Additional Family Medical History / Comment(s): Lung Cancer. Brother(s) Family Medical History: Cancer Additional Family Medical History / Comment(s): Pacemaker, Esophageal Cancer, Prostate Cancer. Sister(s) Family Medical History: Cancer Additional Family Medical History / Comment(s): Breast Cancer. Medications and Allergies Home Medications Medication Instructions Recorded Confirmed Type Diphenox-Atrop 2.5-0.025 mg 2 tab PO BID 03/29/16 07/08/22 History [Lomotil] diazePAM [Valium] 10 mg PO TID 03/29/16 07/08/22 History Vit C/E/Zn/Coppr/Lutein/Zeaxan 1 cap PO BID 12/08/20 07/08/22 History [Preservision Areds 2 Softgel] Aspirin EC [Ecotrin Low Dose] 81 mg PO HS 02/21/22 07/08/22 History Pantoprazole [Protonix] 40 mg PO BID 02/22/22 07/08/22 History amLODIPine [Norvasc] 5 mg PO HS 02/22/22 07/08/22 History Budesonide/Glycopyr/Formoterol 2 puff INHALATION DIRECTED 07/08/22 07/08/22 History [Breztri Aerosphere Inhaler] Cholecalciferol [Vitamin D3 (25 50 mcg PO HS 07/08/22 07/08/22 History Mcg = 1000 Iu)] Dextroamphetamine/Amphetamine 10 mg PO BID 07/08/22 07/08/22 History [Adderall] Loratadine [Claritin] 10 mg PO DAILY 07/08/22 07/08/22 History Rosuvastatin [Crestor] 20 mg PO HS 07/08/22 07/08/22 History Allergies Allergy/AdvReac Type Severity Reaction Status Date / Time cephalexin Allergy Unknown Verified 07/08/22 15:42 levofloxacin [From Levaquin] Allergy SEIZURE Verified 07/08/22 15:42 LIKE REACTION metoprolol Allergy Dyspnea Verified 07/08/22 15:42 Penicillins Allergy Rash/Hives Verified 07/08/22 15:42 pregabalin [From Lyrica] Allergy SEIZURE Verified 07/08/22 15:42 LIKE REACTION Physical Examination - Vital Signs Vital Signs: Vital Signs Temp Pulse Resp BP Pulse Ox 07/08/22 14:37 98.1 F 71 16 148/82 96 07/08/22 13:32 70 18 157/91 96 07/08/22 11:54 98.1 F 77 2 L 168/71 99 Intake and Output 07/08/22 07/08/22 07/08/22 06:59 14:59 22:59 Other: Weight 89.902 kg Patient is an elderly male, very pleasant in no acute distress. Patient is alert awake oriented to time place and person. Patient knows it is 07/08/2022 and it is Monday and it is in [facility]. Speech and language functions are normal. Patient can name and repeat very well. No aphasia or dysarthria. Attention, concentration and fund of knowledge is adequate. On cranial nerve examination, pupils are equal, round and reacting to light, visual anguiano are full on confrontation, with no neglect on double simultaneous stimulation. Extraocular muscles are intact with no nystagmus. Face is symmetric, tongue protrudes to the midline. Palatal elevation and sensation normal, hearing and shoulder shrug normal, facial sensation normal. On muscle strength testing, there is no pronator drift and the strength is normal in arms and legs distally and proximally. Deep tendon reflexes are symmetric 1+ to 2+ and plantars downgoing. Sensory to touch is equal with no neglect on double simultaneous stimulation. Cerebellar function showed no ataxia for [id number] testing. No dysdiadochokinesia. No ataxia for mrru-yn-wigy testing on either side. Tone and bulk of muscles normal. Gait deferred.. On general examination, there is no carotid bruit or murmur, S1-S2 audible. Chest is clear on consultation. Abdomen is soft nontender. No organomegaly, bowel sounds present. Peripheral pulses are present. No edema. 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 * Abnormal brain CT, likely from small vessel disease. Doubt metastasis or acute process. * Hyperlipidemia * Elevated blood pressure * Tobacco use Plan: * Patient undergoing MRI of the brain with and without contrast to rule out metastatic disease, rule out CVA. * Patient also undergoing CT of the chest abdomen and pelvis. * Patient states he had carotid Doppler performed at Dr. Phelps office and was reportedly normal. No need to repeat. I did not hear any abnormal bruit. * Lipid panel from 02/03/2022 with cholesterol 104, LDL 30.9, HDL 41 and triglycerides 156. Hemoglobin A1c 5.8. * Continue aspirin 81 mg and Crestor 20 mg. * Optimize control of blood pressure. * Discontinue corticosteroids. * Recommend complete tobacco cessation. * Neurology will follow. Thank you for the consult.
--- NOTE | 2022-07-08 18:19 | MR ---
EXAMINATION TYPE: MR brain wo/w con DATE OF EXAM: 07/08/2022 COMPARISON: None HISTORY: Patient had abnormal CT in ER CONTRAST: Standard multiplanar, multisequence MRI departmental protocol images were obtained without contrast a nd with 9 mL intravenous Gadavist gadolinium contrast. Ventricles of normal size. There is no mass effect or midline shift. No sign of intracranial hemorrha ge. Diffusion images show no evidence of acute infarct. Sella turcica is normal. On the T2 and FLAIR images there are numerous foci of abnormal increased signal in the white matter a round the lateral ventricles. These measure up to 1 cm. Total number is approximately 50. There is al so involvement of the corpus callosum. The brainstem is intact. Cerebellum is intact. No evidence of orbital mass. Sella turcica is normal. No pathologic enhancement. There is normal enhancement of the venous sinuses. IMPRESSION: Numerous coalescent areas of abnormal increased signal on the T2 and FLAIR images in the white matter which is both central and peripheral and this could be multifocal microvascular ischemia or demyelin ating disease. No evidence of regional cortical infarct.
[2022-07-08] MEDS: PANTOPRAZOLE 40 MG TABLET PO SCH (18:45)
[2022-07-08] MEDS: SODIUM CHLORIDE 0.9% 1,000 ML IV SCH ×2 (18:49→22:24)
[2022-07-08] MEDS: IPRATROPIUM 0.5 MG/2.5 ML NEBU INHALATION SCH (20:20)
[2022-07-08] MEDS: SYMBICORT 160-4.5 MCG INHALER INHALATION SCH (20:20)
[2022-07-08] MEDS: ALBUTEROL NEBULIZED 2.5 MG/3 ML INHALATION SCH (20:20)
--- NOTE | 2022-07-08 20:47 | CT ---
EXAMINATION TYPE: CT chest abdomen w con DATE OF EXAM: 07/08/2022 COMPARISON: Chest CT scan 03/15/2022 HISTORY: COPD, abdominal pain CT DLP: 1092.2 mGycm Automated exposure control for dose reduction was used. CONTRAST: Performed with IV Contrast, patient injected with 70 cc mL of Isovue 370. The lungs are clear of infiltrate. No pleural effusion. No mediastinal adenopathy. There are no hilar masses. The thoracic aorta is intact. No aneurysm or dissection. Liver and spleen are intact. No pancreatic mass. Stomach is intact. There are clips from cholecystect timothy. The bile ducts are not dilated. There is no adrenal mass. Kidneys have normal size and contour. No hydronephrosis. Ureters are not dilated. Abdominal aorta is atheromatous. No ascites. No mesenteri c edema. No sign of a bowel obstruction. The thoracic and lumbar spine are intact. No compression fra cture. Sternum is intact. No evidence of rib fracture. There is some hypertrophic degenerative spurri ng at T11-T12 level. IMPRESSION: Mild atherosclerotic vascular disease. No suspicious pulmonary mass. No acute abnormality of the ches t and abdomen. Chest is not changed significantly compared to old exam.
[2022-07-08] MEDS: NICOTINE 21MG/24HR PATCH TRANSDERM SCH (20:53)
[2022-07-08] MEDS ORDERED: ASPIRIN 81 MG PO SCH (21:00)
[2022-07-08] MEDS ORDERED: amLODIPine 5 MG TAB PO SCH (21:00)
[2022-07-08] MEDS ORDERED: ATORVASTATIN 40 MG TAB PO SCH (21:00)
[2022-07-08] MEDS: NON FORMULARY DRUG (Dextroamphetamine/Amphetamine [Adderall] 10 MG Tablet) PO SCH (21:46)
[2022-07-08] MEDS: DIPHENOX-ATROP 2.5-0.025 MG 1 EACH TAB PO SCH (22:11)
[2022-07-08] MEDS: diazePAM 5 MG TAB PO SCH (22:11)
[2022-07-08] MEDS: VIT A,C & E-LUTEIN-MINERALS 1 EACH TAB PO SCH (22:23)
[2022-07-09] MEDS: SYMBICORT 160-4.5 MCG INHALER INHALATION SCH (08:17)
[2022-07-09] MEDS: IPRATROPIUM 0.5 MG/2.5 ML NEBU INHALATION SCH ×2 (08:17→12:22)
[2022-07-09] MEDS: ALBUTEROL NEBULIZED 2.5 MG/3 ML INHALATION SCH ×2 (08:17→12:22)
[2022-07-09] MEDS: diazePAM 5 MG TAB PO SCH (08:48)
[2022-07-09] MEDS: DIPHENOX-ATROP 2.5-0.025 MG 1 EACH TAB PO SCH (08:49)
[2022-07-09] MEDS: NICOTINE 21MG/24HR PATCH TRANSDERM SCH (08:49)
[2022-07-09] MEDS: PANTOPRAZOLE 40 MG TABLET PO SCH (08:49)
[2022-07-09] MEDS ORDERED: LORATADINE 10 MG TAB PO SCH (09:00)
[2022-07-09 11:09] LABS: Basophils # (A) 0.02 X 10*3/uL (0.00-0.10); Basophils % (A) 0.2 %; Eosinophils % (A) 0.9 %; HCT 39.3 % (39.6-50.0); HGB 12.7 g/dL (13.0-17.0); Immature Grans, Automated 0.7 %; Lymphocytes # (A) 2.61 X 10*3/uL (0.90-5.00); Lymphocytes % (A) 24.6 %; MCH 30.2 pg (27.0-32.0); MCHC 32.3 g/dL (32.0-37.0); MCV 93.6 fL (80.0-97.0); Mean Platelet Volume 8.8 fL (9.5-12.2); Monocytes # (A) 1.01 X 10*3/uL (0.20-1.00); Monocytes % (A) 9.5 %; NRBC Per 100 WBC 0 /100 WBCS (0.0-0.0); Neutrophils # (A) 6.81 X 10*3/uL (1.80-7.70); Neutrophils % (A) 64.1 %; Platelet Count 151 X 10*3/uL (140-440); RDW 13.6 % (11.5-14.5); WBC 10.62 X 10*3/uL (4.50-10.00)
[2022-07-09 11:21] LABS: African American GFR (CKD) 89.2 (60.0-200.0); Anion Gap 8.1 mmol/L (10.00-18.00); BUN/Creat Ratio 22.1 Ratio (12.00-20.00); Blood Urea Nitrogen 22.1 mg/dL (9.0-27.0); Calcium 8.5 mg/dL (8.7-10.3); Carbon Dioxide 24.9 mmol/L (20.0-27.5); Potassium 4.6 mmol/L (3.5-5.5)
--- NOTE | 2022-07-09 12:12 | HP ---
HISTORY AND PHYSICAL HISTORY OF PRESENT ILLNESS: The patient came in with altered mental status, some memory loss, status post COVID, severe shortness of breath with exertion. Negative D-dimer, negative CAT scan of the chest. He has bad acid reflux for many years also. He had abnormal scan in the ER. He was severely dehydrated, has been rehydrated overnight. He had an abnormal CAT scan of the head. MRI was negative for stroke, but shows white matter disease versus demyelinating disease. Neurology saw and they said they doubt metastases or acute process. He has dyslipidemia, hypertension, nicotine addiction, and COPD. HOME MEDICATIONS: 1. Aspirin 81 mg daily. 2. Crestor 20 mg daily. REVIEW OF SYSTEMS: A 14-point review of systems, weakness, fatigue, altered mental status, memory loss, confusion. Otherwise negative except for chronic severe GERD. PHYSICAL EXAMINATION: VITAL SIGNS: Reviewed. SKIN: Dry skin turgor, dry mucous membranes. PSYCH: He has fair mood and affect, kind of anxious. NEUROLOGIC: Alert and oriented x3. Cranial nerves are intact. OPHTHALMOLOGIC: Pupils equal, round, and reactive. CARDIOVASCULAR: S1 and S2. GI: Soft. HEMATOLOGY: Negative for Homans. ABDOMEN: Mild tenderness to palpation, epigastric. LUNGS: Scattered wheeze. ASSESSMENT: Acute delirium, metabolic encephalopathy secondary to severe dehydration. He was on Decadron for 5-7 days. Neurology thinks he might have some steroid induced psychosis, which could be possible, has white matter disease versus demyelination, dyslipidemia, hypertension, nicotine addiction, GERD. He has been rehydrated. Continue with aspirin, Crestor. If he is mentally improved, we can send him home in next day or 2 or the next day. Prognosis guarded. Wait for Neurology to clear him. Continue rehydration. His labs look better today. Prognosis is guarded. MMODL / IJN: [id number] /
[2022-07-09] MEDS: SODIUM CHLORIDE 0.9% 1,000 ML IV SCH (12:40)
[2022-07-09] MEDS: VIT A,C & E-LUTEIN-MINERALS 1 EACH TAB PO SCH (12:41)
[2022-07-09] MEDS: NON FORMULARY DRUG (Dextroamphetamine/Amphetamine [Adderall] 10 MG Tablet) PO SCH (12:41)
[2022-07-09 14:32] VITALS: BP 120/68; PULSE 84; TEMP 98.1
--- NOTE | 2022-07-09 14:57 | P.PN ---
Subjective Progress Note Date: 07/09/22 Patient was seen for a follow-up. Patient states she is 99% back to baseline. Denies any new symptoms were no headaches. He is fully dressed and ready to be discharged. Objective - Vital Signs Vital signs: Vital Signs Temp 98.1 F 07/09/22 12:10 Pulse 84 07/09/22 12:10 Resp 16 07/09/22 13:23 BP 120/68 07/09/22 12:10 Pulse Ox 95 07/09/22 12:10 FiO2 Intake & Output 07/08/22 07/09/22 07/09/22 18:59 06:59 18:59 Intake Total 118 Balance 118 Weight 89.902 kg Intake: Oral 118 Other: Voiding Method Toilet - Exam Mental status, speech and language functions are normal. Muscle strength and gait is normal. - Labs CBC & Chem 7: 07/09/22 06:56 07/09/22 06:56 Labs: Abnormal Lab Results - Last 24 Hours (Table) 07/08/22 07/09/22 07/09/22 Range/Units 13:12 06:56 06:56 WBC 10.62 H (4.50-10.00) X 10*3/uL RBC 4.20 L (4.40-5.60) X 10*6/uL Hgb 12.7 L (13.0-17.0) g/dL Hct 39.3 L (39.6-50.0) % MPV 8.8 L (9.5-12.2) fL Immature Gran # 0.07 H (0.00-0.04) X 10*3/uL Monocytes # 1.01 H (0.20-1.00) X 10*3/uL Anion Gap 8.10 L (10.00-18.00) mmol/L BUN/Creatinine Ratio 22.10 H (12.00-20.00) Ratio Calcium 8.5 L (8.7-10.3) mg/dL Ur Amphetamines Screen Detected H (NotDetected) U Benzodiazepines Scrn Detected H (NotDetected) Assessment and Plan Assessment: * Acute delirium, 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 * Abnormal brain CT, likely from small vessel disease. Doubt metastasis or acute process. * Hyperlipidemia * Elevated blood pressure * Tobacco use Plan: * MRI of the brain with and without contrast revealed numerous coalescent areas of abnormal increased signal on the T2 and FLAIR images in the white matter which is both central and peripheral and this could be multifocal microvascular ischemia or demyelinating disease. No evidence of regional cortical infarct. I personally reviewed MRI, and agree with the findings. No acute ischemic process. Very significant small vessel disease. * CT of the chest abdomen and pelvis revealed mild atherosclerotic vascular disease. No suspicious pulmonary mass. No acute abnormality of the chest and abdomen. Chest is not changed significantly compared to old exam. * Patient states he had carotid Doppler performed at Dr. Phelps office and was reportedly normal. No need to repeat. I did not hear any abnormal bruit. * Lipid panel from 02/03/2022 with cholesterol 104, LDL 30.9, HDL 41 and triglycerides 156. Continue Crestor 20 mg. * Hemoglobin A1c 5.8. * Continue aspirin 81 mg and Crestor 20 mg. * Optimize control of blood pressure. * Discontinue corticosteroids. Patient's mentation much improved since off corticosteroids. He is almost back to baseline. * Recommend complete tobacco cessation. Patient has nicotine patch. * Neurologically clear for discharge. Recommend patient follow up with neurologist as outpatient, if he has any persistent neurological issues.
== END 2022-07-09 14:40 | disposition home or self-care (01) ==
LOC: EC 11:51 → 6NMEDSUR 15:28
PROVIDERS: ADMIT Family Medicine; ATTEND Family Medicine
DX: G93.41 Metabolic encephalopathy (principal); E86.0 Dehydration; R41.0 Disorientation, unspecified; F41.9 Anxiety disorder, unspecified; F22 Delusional disorders; Z79.82 Long term (current) use of aspirin; Z79.899 Other long term (current) drug therapy; Z88.1 Allergy status to other antibiotic agents; Z88.0 Allergy status to penicillin; Z88.8 Allergy status to other drugs, medicaments and biological substances; J44.9 Chronic obstructive pulmonary disease, unspecified; K21.9 Gastro-esophageal reflux disease without esophagitis; E78.5 Hyperlipidemia, unspecified; M19.90 Unspecified osteoarthritis, unspecified site; Z87.11 Personal history of peptic ulcer disease; Z86.010 Personal history of colon polyps; K58.9 Irritable bowel syndrome, unspecified; H35.30 Unspecified macular degeneration; M31.6 Other giant cell arteritis; G58.8 Other specified mononeuropathies; Z90.49 Acquired absence of other specified parts of digestive tract; Z98.890 Other specified postprocedural states; F32.A Depression, unspecified; Z82.3 Family history of stroke; Z80.1 Family history of malignant neoplasm of trachea, bronchus and lung; Z80.0 Family history of malignant neoplasm of digestive organs; Z80.42 Family history of malignant neoplasm of prostate; Z80.3 Family history of malignant neoplasm of breast; Z86.16 Personal history of COVID-19; F17.210 Nicotine dependence, cigarettes, uncomplicated
CPT/HCPCS: 99285; 36415; 94640; 93005; 85379; 83880; 80053; 80048; 84443; 82140; 84484; 85025 ×2; 85610; 85730; 81003; 87040; 80306; 80143; 87635; 80179; 71046; 70450; 71260; 74160; 70553; G0378 ×2; G0480; S4990 ×2; Q9967; A9585; 80320

== ENCOUNTER → 2023-07-10 | Outpatient (CLI) | payer MEDICARE, BC ==
--- NOTE | 2023-07-16 08:11 | CTL ---
EXAMINATION TYPE: CT Low Dose Lung DATE OF EXAM: 07/10/2023 8:42 AM CLINICAL INDICATION:Male, 67 years old with history of Z12.2 LUNG CA SCREEN F17.210 NICOTINE DEPENDEN CE; current smoker 1-1/2 ppd x45 years. , history of tobacco use. COMPARISON: CT chest 07/08/2022, CT Low Dose Lung 03/15/2022 and before TECHNIQUE: CT scan of the chest obtained without contrast from approximately the lung apices through the upper abdomen. Axial, coronal and sagittal reformatted images were obtained. Low dose technique w as utilized for nodule screening purposes. CT DLP: 110.3 mGycm, Automated exposure control for dose reduction was used. CT Contrast: IV contrast used: None. Oral contrast used: None. FINDINGS: Lack of intravenous contrast and low dose technique limits the evaluation of the vascular and soft ti ssue structures. LUNGS: Mild upper lobe emphysematous changes. Scattered mostly peripheral subpleural interstitial sca rring/fibrosis. No acute infiltrate. NODULES: No clinically significant nodules demonstrated. Small, 3 mm calcified granuloma again seen in the rig lower lobe image 179 (this was the nodule originally detected 08/2017 which was not calcified at th at time). PLEURA: No sizeable pleural effusion or pneumothorax. AIRWAY: Central airways are patent. LOWER NECK: No significant findings. MEDIASTINUM: No enlarged mediastinal or hilar nodes, in the limits of noncontrast exam. HEART: Normal heart size. Moderate coronary arterial calcifications involving the left and right freedom nary arteries. No appreciable pericardial effusion. VASCULATURE: Mild to moderate atherosclerotic calcifications of the aorta and branches. Ascending ao rta is 3.3 CM, descending is 2.8 CM. Pulmonary trunk measures 2.3 CM, normal in size. Vessels otherw ise not further assessed without contrast. SOFT TISSUES/LYMPH NODES: Mild bilateral gynecomastia-like changes. No axillary adenopathy. MUSCULOSKELETAL: No acute osseous abnormalities. Zjzc-kt-miuqftdi degenerative changes of the thorac ic spine. UPPER ABDOMEN: No significant abnormality. Cholecystectomy clips. IMPRESSION: 1. Stable exam. No clinically significant pulmonary nodules. 2. Mild emphysematous changes and fibrosis. 3. Moderate coronary arterial calcifications. CT LUNG-RADS AND FOLLOWUP RECOMMENDATION: Lung-RADS Category 2, Benign. Based on imaging features or indolent behavior. Continue annual scree amanuel with LDCT in 12 months. C Modifier (Personal history of lung cancer?): No. S Modifier (Other clinically significant or potentially significant findings?): Yes Other significant or potentially significant abnormalities: Coronary arterial calcification moderat e or severe. Recommend smoking cessation (if current smoker), or continuation of smoking cessation (if prior smoke r). Annual screening for lung cancer with low-dose computed tomography is recommended in adults ages 55 to 77 years who have a 30 pack-year smoking history and currently smoke or have quit within the pa st 15 years. Screening should be discontinued once a person has not smoked for 15 years or develops a health problem that substantially limits life expectancy or the ability or willingness to have curat neymar lung surgery. Lung-RADS v.2021 Link Here [email or web address]
== END | disposition home or self-care (01) ==
LOC: RADCTMAIN 08:12
PROVIDERS: ATTEND Internal Medicine
DX: Z12.2 Encounter for screening for malignant neoplasm of respiratory organs (principal); I25.10 Atherosclerotic heart disease of native coronary artery without angina pectoris; J84.10 Pulmonary fibrosis, unspecified; F17.210 Nicotine dependence, cigarettes, uncomplicated
CPT/HCPCS: 71271

== ENCOUNTER → 2023-08-08 | Outpatient (CLI) | payer MEDICARE, BC ==
--- NOTE | 2023-08-10 16:43 | XR ---
EXAMINATION TYPE: XR chest 2V DATE OF EXAM: 08/08/2023 COMPARISON: 07/08/2022 HISTORY: 68-year-old male R05.1, acute cough TECHNIQUE: Frontal and lateral views FINDINGS: The cardiomediastinal silhouette, aorta, and pulmonary vasculature are within normal limits. Mild hyp erinflation. No consolidation or pleural effusion. IMPRESSION: COPD. No acute cardiopulmonary process.
== END | disposition home or self-care (01) ==
LOC: RADXRMAIN 10:39
PROVIDERS: ATTEND Internal Medicine
DX: J44.9 Chronic obstructive pulmonary disease, unspecified (principal)
CPT/HCPCS: 71046

== ENCOUNTER → 2024-06-13 | Outpatient (CLI) | payer MEDICARE, BC ==
[2024-06-14 12:15] LABS: Penicillium notatum IgE Class CLASS 0
== END | disposition home or self-care (01) ==
LOC: LABWHC1 08:09
PROVIDERS: ATTEND Otolaryngology
DX: J30.89 Other allergic rhinitis (principal)
CPT/HCPCS: 36415; 86003

== ENCOUNTER → 2024-07-02 | Outpatient (CLI) | payer MEDICARE, BC ==
--- NOTE | 2024-07-02 10:21 | XR ---
EXAMINATION TYPE: XR chest 2V DATE OF EXAM: 07/02/2024 9:38 AM COMPARISON: Chest radiographs from 08/08/2023 CLINICAL INDICATION: Male, 68 years old with history of R05.1 ACUTE COUGH; [facility] TECHNIQUE: XR chest 2V Frontal and lateral views of the chest. FINDINGS: Lungs/Pleura: There is flattening of the diaphragm with increased lucency of the lungs. No evidence o f pneumothorax, pleural effusion or focal consolidation. Pulmonary vascularity: Unremarkable. Heart/mediastinum: Cardiomediastinal silhouette is unremarkable. Musculoskeletal: No acute osseous pathology. Other findings: None IMPRESSION: 1. No acute cardiopulmonary disease process. 2. COPD changes. [facility], , 07/02/2024 10:19 AM
== END | disposition home or self-care (01) ==
LOC: RADXRMAIN 09:24
PROVIDERS: ATTEND Internal Medicine
DX: J44.9 Chronic obstructive pulmonary disease, unspecified (principal)
CPT/HCPCS: 71046

== ENCOUNTER → 2024-07-23 | Outpatient (CLI) | payer MEDICARE, BC ==
--- NOTE | 2024-07-24 18:05 | CTL ---
EXAMINATION TYPE: CT Low Dose Lung DATE OF EXAM: 07/23/2024 8:32 AM COMPARISON: 07/10/2023 SCREENING VISIT: Subsequent CT DIAGNOSTIC QUALITY: Satisfactory CLINICAL INDICATION: Male, 68 years old with history of Z12.2 LUNG CA SCR F17.210 CURRENT SMOKER, SMO KER, 1.5 packs a day x44 years Lung cancer screening, History of tobacco use. TECHNIQUE: Low dose computed tomography scan was performed through the chest at 1 mm thick sections a nd reconstructed images in the coronal plane at 1 mm thick sections. Contrast used: mL of , (none if empty) Oral contrast used: (none if empty) CT DLP: 93.7 mGycm, Automated exposure control for dose reduction was used. CT CTDI: 2.4 mGy, Automated exposure control for dose reduction was used. FINDINGS: LUNG NODULES: None. LUNGS: COPD: Severity: None Fibrosis: Severity: Mild Lymph nodes: None Other findings: None RIGHT PLEURAL SPACE: Effusion: None Calcification: None Thickening: None Pneumothorax: None LEFT PLEURAL SPACE: Effusion: None Calcification: None Thickening: None Pneumothorax: None HEART: Other: Ascending thoracic aorta at the level the main pulmonary artery measures 3.4 cm. The main pul monary artery at the bifurcation measures 2.4 cm. Heart Size: Normal Coronary calcification: Moderate coronary artery calcifications present. Pericardial effusion: None OTHER FINDINGS: Upper abdomen: Normal Bony thorax: Normal Supraclavicular region: Normal IMPRESSION: 1. No suspicious changes to suggest primary or metastatic neoplasm. FOLLOW UP CT CHEST RECOMMENDATION: Follow-up low-dose CT chest one year CT LUNG RAD: Lung-Rad 1 Negative [facility], , 07/24/2024 6:03 PM
== END | disposition home or self-care (01) ==
LOC: RADCTMAIN 08:11
PROVIDERS: ATTEND Internal Medicine
DX: Z12.2 Encounter for screening for malignant neoplasm of respiratory organs (principal); F17.210 Nicotine dependence, cigarettes, uncomplicated
CPT/HCPCS: 71271

== ENCOUNTER 2024-11-05 05:59 | Day surgery (SDC) | payer MEDICARE, BC ==
[2024-11-04 09:34] VITALS: BMI 30.5
[2024-11-05] MEDS ORDERED: LIDOCAINE 1% (10MG/ML) FOR IV START INTRADERMA PRN (06:22)
[2024-11-05] MEDS: IV FLUID CONTINUATION 1,000 ML IV ONE (06:23)
[2024-11-05 06:30] VITALS: TEMP 97.9
[2024-11-05] MEDS: LACTATED RINGERS 1,000 ML IV SCH (06:37)
[2024-11-05] MEDS ORDERED: PROPOFOL 10 MG/ML 20 ML VIAL IV ONE (07:09)
[2024-11-05] MEDS ORDERED: LIDOCAINE 1% INJ 10MG/ML (20 ML MDV) ONE (07:09)
--- NOTE | 2024-11-05 07:23 | P.PCN ---
Date of Procedure: 11/05/24 Procedure(s) Performed: Brief history: Patient is a pleasant 69-year-old white male scheduled for an elective upper endoscopy as well as colonoscopy as a part of evaluation of GERD and change in bowel habits with chronic intermittent diarrhea of several years duration Procedure performed: Esophagogastroduodenoscopy with biopsy Colonoscopy with snare polypectomy Preoperative diagnosis: GERD Change in bowel habits Anesthesia: MAC Procedure: After informed consent was obtained from the patient was brought into the endoscopy unit and IV sedation was administered by anesthesia under continuous monitoring. Initially upper endoscopy was done. The Olympus GF 160 video endoscope was inserted inserted into the mouth and esophagus intubated without any difficulty and was gradually advanced into the stomach and duodenum and carefully examined. The bulb and second part of the duodenum appeared normal. The scope was then withdrawn into the stomach adequately insufflated with air and upon careful examination the antrum and mild gastritis and biopsies were done from this area. Mucosa body, cardia and fundus appeared normal. The scope was then withdrawn into the esophagus. The GE junction was located at 40 cm to the incisors. It appeared regular with no erythema erosions or ulcerations. R est of the esophagus appeared normal. Biopsies were done from the distal esophagus rule out reflux esophagitis. Patient tolerated the procedure well. At this time the patient continued to remain sedation. Initial digital rectal examination was normal. Olympus CF 160 video colonoscope was then inserted into the rectum and gradually advanced to the cecum without any difficulty. Careful examination was performed as the scope was gradually being withdrawn. The prep was excellent. The cecum, ascending colon, appeared normal. The transverse colon there was a 5 mm to 7 mm sessile polyp that was removed by cold snare polypectomy. Rest of the transverse colon, descending colon, sigmoid colon and rectum appeared normal. Retroflexion was performed in the rectum and no lesions were noted. Patient tolerated the procedure well. Impression: 1. Upper endoscopy revealed mild antral gastritis but no active esophagitis or Salas's esophagus 2. Colonoscopy revealed 5 mm and 7 mm transverse colon polyp status post cold snare polypectomy Recommendations: Findings of this examination were discussed with the patient as well as his family. He was advised to follow-up with the biopsy results. If the biopsy reveals adenoma he can have a repeat colonoscopy in 5 years.
[2024-11-05 07:44] VITALS: BP 128/73; PULSE 72; RESP 18
== END 2024-11-05 08:23 | disposition home or self-care (01) ==
LOC: ORWHC2ENDO 05:59
PROVIDERS: ATTEND Internal Medicine Gastroenterology
DX: D12.3 Benign neoplasm of transverse colon (principal); K21.00 Gastro-esophageal reflux disease with esophagitis, without bleeding; E78.5 Hyperlipidemia, unspecified; J44.89 Other specified chronic obstructive pulmonary disease; F41.9 Anxiety disorder, unspecified; F32.A Depression, unspecified; M19.90 Unspecified osteoarthritis, unspecified site; K58.9 Irritable bowel syndrome, unspecified; L98.499 Non-pressure chronic ulcer of skin of other sites with unspecified severity; F17.200 Nicotine dependence, unspecified, uncomplicated; Z88.1 Allergy status to other antibiotic agents; Z88.8 Allergy status to other drugs, medicaments and biological substances; Z79.899 Other long term (current) drug therapy; Z98.890 Other specified postprocedural states; Z79.51 Long term (current) use of inhaled steroids
CPT/HCPCS: 88305; 45385; 43239; J2003; J2704